=== PATIENT | female | born 1995 | race Caucasian/White ===

== ENCOUNTER 2019-07-11 17:12 | Emergency (ER) | payer OTHER, MEDICAID ==
[~2019-07-11] VITALS: Ht 167.6 cm; Wt 46.3 kg
--- NOTE | 2019-07-11 18:22 | ED Back Pain ---
General Chief Complaint: General Problems/Pain Stated Complaint: BACK/NECK PAIN Source of Information: Patient, Family (daughter and grandmother) Exam Limitations: No Limitations History of Present Illness Date Seen by Provider: Jul 11, 2019 Time Seen by Provider: 18:05 Initial Comments The patient presents to the ER by private conveyance with her family and chief complaint that Friday, 6 days ago she was moving about a 50 pound fryer and tweaked her back. She's had back pain before but never this bad. Her pain is between her shoulder blades radiating down to her upper lumbar spine and some in her neck. She's not having any numbness, paresthesias tingling weakness dropping things falls, saddle anesthesia, incontinence of urine and bowel or bladder. She has had no traumatic incident. She's been using Tylenol mild relief. She also went and saw a chiropractor 2 days ago and does not feel like that this helped much. Generally she is followed by Dr. ochoa. She has Nexplanon. Allergies and Home Medications Allergies Coded Allergies: No Known Drug Allergies (Unverified , 07/11/19) Home Medications Cyclobenzaprine HCl 10 Mg Tablet, 10 MG PO Q8H PRN for SPASMS Prescribed by: PATRICIA WARREN on 07/11/191824 Naproxen 500 Mg Tablet, 500 MG PO BID Prescribed by: PATRICIA WARREN on 07/11/191824 Prednisone 20 Mg Tab, 40 MG PO DAILY Prescribed by: PATRICIA WARREN on 07/11/191824 Patient Home Medication List Home Medication List Reviewed: Yes Review of Systems Constitutional: No chills, No diaphoresis EENTM: No ear discharge, No ear pain Respiratory: No cough, No short of breath Cardiovascular: No chest pain, No edema Gastrointestinal: No abdominal pain, No constipation Genitourinary: No decreased output, No discharge Past Ulkvnjq-Gkogct-Jawbqt Hx Patient Social History Alcohol Use: Denies Use Recreational Drug Use: No Smoking Status: Never a Smoker Physical Exam Vital Signs Vital Signs - First Documented 07/11/19 17:20 Temp 98.4 Pulse 74 Resp 18 B/P (MAP) 107/61 (76) Pulse Ox 100 O2 Delivery Room Air Capillary Refill : Height, Weight, BMI Height: '" Weight: lbs. oz. kg; BMI Method: General Appearance: Mild Distress, Thin HEENT: PERRL/EOMI, Pharynx Normal, Moist Mucous Membranes Neck: Supple, Limited Range of Motion (mild limitation of range of motion bilaterally secondary to pain and spasm), Tender Lateral, Tender Midline Cardiovascular: Regular Rate, Rhythm, No Edema, Normal Peripheral Pulses Respiratory: Lungs Clear, Normal Breath Sounds, No Accessory Muscle Use, No Respiratory Distress Peripheral Pulses: 2+ Radial Pulses (R), 2+ Radial Pulses (L) Back: Normal Inspection, No CVA Tenderness, Vertebral Tenderness (cervical and thoracic spine) Extremity: Normal Capillary Refill, Normal Inspection, Non Tender, No Pedal Edema Neurologic/Psychiatric: Alert, Oriented x3, No Motor/Sensory Deficits (all 4 extremities), Other (symmetric, 2 out of 4 bilateral deep tendon reflexes at the patella) Skin: Normal Color, Warm/Dry Progress/Results/Core Measures Results/Orders My Orders Orders - PATRICIA WARREN Ketorolac Injection (Toradol Injection) (07/11/19 18:30) Orphenadrine Injection (Norflex Injectio (07/11/19 18:30) Medications Given in ED Current Medications Medications Dose Ordered Sig/Susana Route Start Time Stop Time Status Last Admin Dose Admin Ketorolac Tromethamine 60 mg ONCE ONCE IM 07/11/19 18:30 07/11/19 18:31 DC 07/11/19 18:40 60 MG Orphenadrine Citrate 60 mg ONCE ONCE IM 07/11/19 18:30 07/11/19 18:31 DC 07/11/19 18:40 60 MG Vital Signs/I&O 07/11/19 17:20 Temp 98.4 Pulse 74 Resp 18 B/P (MAP) 107/61 (76) Pulse Ox 100 O2 Delivery Room Air Progress Progress Note : Time: 18:19 Progress Note Toradol, Norflex and put her on Naprosyn and rest tonight. Plan to utilize steroids outpatient if not seeing improvement in 1 week. Follow-up with Dr. ochoa in 2 weeks if not seeing improvement. Departure Impression Primary Impression: Neck pain Additional Impressions: Acute thoracic back pain Qualified Codes: M54.6 - Pain in thoracic spine Spasm of thoracic back muscle Disposition: 01 HOME, SELF-CARE Condition: Stable Departure-Patient Inst. Decision time for Depature: 18:20 Referrals: AHSAN OCHOA MD (PCP/Family) Primary Care Physician Patient Instructions: Upper Back Pain (DC), Generalized Neck Pain (DC) Add. Discharge Instructions: For the next 2 weeks if you're having pain and would like you to take the Naprosyn one tablet twice a day on a schedule. You do not need to use any other NSAIDs such as ibuprofen, Aleve etc. If you're having breakthrough pain you may use 1000 mg of Tylenol every 8 hours as needed. Use topical creams such as icy hot or Aspercreme liberally. Heating pads can be helpful for your back pain. If you're having spasms of the muscles of your neck or back causing you to have difficulty turning your upper trunk or neck then you should use the cyclobenzaprine 1 tablet every 8 hours for muscle relaxing. Cyclobenzaprine will cause drowsiness and should not be combined with alcohol. If you're not seeing improvement in 7-10 days then you can sweet pickle maker the prednisone and start taking 1 tablet twice daily for 5 days. If you're not seeing improvement after 2 weeks then you should consider follow- up with primary care. All discharge instructions reviewed with patient and/or family. Voiced understanding. Scripts Naproxen (Naprosyn) 500 Mg Tablet 500 MG PO BID for 14 Days, #30 TAB 0 Refills Prov: PATRICIA WARREN 07/11/19 Cyclobenzaprine HCl (Cyclobenzaprine HCl) 10 Mg Tablet 10 MG PO Q8H PRN for SPASMS, #15 TAB 0 Refills Prov: PATRICIA WARREN 07/11/19 Prednisone (Prednisone) 20 Mg Tab 40 MG PO DAILY for 5 Days, #10 TAB 0 Refills Prov: PATRICIA WARREN 07/11/19 Work/School Note: Work Release Form Date Seen in the Emergency Department: Jul 11, 2019 Return to Work: Jul 13, 2019 Restrictions: Need Release from Doctor Other Restrictions Listed Below: Do not lift, push or pull more than 40 pounds until 07/25/19. PATRICIA WARREN Jul 11, 2019 18:22
[2019-07-11] MEDS ORDERED: CYCL10TA9 PO (18:25)
[2019-07-11] MEDS ORDERED: NAPR-1071 PO (18:25)
[2019-07-11] MEDS ORDERED: PRD20T PO (18:25)
[2019-07-11] MEDS ORDERED: ORPHENADRINE 60 MG/2 ML (NORFLEX) AMP IM ONE (18:30)
[2019-07-11] MEDS ORDERED: KETOROLAC 60 MG/2 ML VIAL IM ONE (18:30)
[2019-07-11 18:45] VITALS: BP 107/61
== END 2019-07-11 18:45 | disposition home or self-care (01) ==
LOC: ER FS 17:15
DX: M62.830 Muscle spasm of back (principal); M54.2 Cervicalgia; W50.0XXA Accidental hit or strike by another person, initial encounter
CPT/HCPCS: 99284

== ENCOUNTER → 2019-07-27 | Outpatient (CLI) | payer OTHER, MEDICAID ==
[~2019-07-27] MED LIST: AMOX500C2 PO; CYCL10TA9 PO; IBUP-1780 PO; NAPR-1071 PO; PRD20T PO; TRAM-42 PO
--- NOTE | 2019-07-27 10:05 | Diagnostic Imaging Report ---
Clinical indication: 2 weeks ago patient pushed something that was heavier than her. Patient is having mid back pain on right side. Exams: 1: Chest x-ray PA and lateral views. 2: X-ray of the Right ribs, 3 views. Comparisons: None. Findings: Lungs/pleura: Lungs are clear. There is no pneumothorax. There is no pleural effusion. Mediastinum: Unremarkable. Pulmonary vasculature: Unremarkable. Heart: Unremarkable. Bones/extrathoracic soft tissue: Unremarkable. Ribs: There is no fracture or bony abnormality. Impression: Unremarkable chest x-ray exam. There is no bone or rib fracture seen on this exam Dictated by: Dictated on workstation # [id number]
== END ==
LOC: RAD FS 09:15
PROVIDERS: ATTEND Family Medicine
DX: M54.6 Pain in thoracic spine (principal); X50.0XXA Overexertion from strenuous movement or load, initial encounter
CPT/HCPCS: 71046; 71100

== ENCOUNTER 2019-07-30 12:09 | Emergency (ER) | payer OTHER, MEDICAID ==
[~2019-07-30] VITALS: Ht 162.6 cm; Wt 54.4 kg
[~2019-07-30 12:09] MED LIST changes: -AMOX500C2 PO; -IBUP-1780 PO; -TRAM-42 PO
--- NOTE | 2019-07-30 12:30 | ED GI ---
General Chief Complaint: Abdominal/GI Problems Stated Complaint: RT SIDED ABD PAIN Source of Information: Patient Exam Limitations: No Limitations History of Present Illness Date Seen by Provider: Jul 30, 2019 Time Seen by Provider: 12:27 Initial Comments Presents with abdominal pain for the past several days. Seen by primary care provider and was placed on Carafate and she states she's had no improvement. A few weeks ago she hurt her back, was seen in this emergency room and had x-rays placed on muscle relaxers. Was later seen again and placed on Naprosyn for her back pain. Overall it is improved, but still having some pain with movement. Abdominal pain has been intermittent, but somewhat progressive. She's had decreased appetite, but still eating. Positive nausea without vomiting and one loose stool yesterday. Denies fever or chills Modifying Factors: Worsens With Breathing, Worsens With Movement Associated Symptoms: Back Pain; No Chest Pain, No Fever/Chills, No Fatigue, No Headache, No Heartburn; Nausea/Vomiting; No Rash, No Shortness of Air, No Swelling/Mass in Abdomen, No Syncope, No Weakness Allergies and Home Medications Allergies Coded Allergies: No Known Drug Allergies (Unverified , 07/11/19) Home Medications Amoxicillin 500 Mg Capsule, 500 MG PO TID Prescribed by: RAJESH MERCHANT on 07/30/191423 Cyclobenzaprine HCl 10 Mg Tablet, 10 MG PO Q8H PRN for SPASMS Prescribed by: PATRICIA WARREN on 07/11/19 182 Ibuprofen 800 Mg Tablet, 600 MG PO Q8H PRN for PAIN-MILD Prescribed by: RAJESH MERCHANT on 07/30/191423 Naproxen 500 Mg Tablet, 500 MG PO BID Prescribed by: PATRICIA WARREN on 07/11/19 182 Prednisone 20 Mg Tab, 40 MG PO DAILY Prescribed by: PATRICIA WARREN on 07/11/19 182 Tramadol HCl 50 Mg Tablet, 50 MG PO Q6H Prescribed by: RAJESH MERCHANT on 07/30/19 142 Patient Home Medication List Home Medication List Reviewed: Yes Review of Systems Review of Systems Constitutional: see HPI; No chills, No diaphoresis, No fever; malaise; No weak ness Respiratory: Denies Cough, Denies Shortness of Air, Denies SOA With Exertion, Denies SOA at Rest Cardiovascular: Denies See HPI, Denies Chest Pain, Denies Edema, Denies Irregular Heart Rate, Denies Lightheadedness, Denies Palpitations, Denies Syncope Gastrointestinal: Denies Abdomen Distended; Abdominal Pain; Denies Constipated; Nausea, Poor Appetite; Denies Poor Fluid Intake, Denies Vomiting Genitourinary: Denies Burning, Denies Discharge, Denies Frequency, Denies Flank Pain, Denies Hematuria Musculoskeletal: back pain; No joint pain Skin: No change in color, No rash Past Qgwbudp-Edgdlz-Oalrsk Hx Past Med/Social Hx: Reviewed Nursing Past Med/Soc Hx Patient Social History 2nd Hand Smoke Exposure: No Recent Hopitalizations: No Immunizations Up To Date Tetanus Booster (TDap): Less than 5yrs Seasonal Allergies Seasonal Allergies: No Past Medical History Surgeries: Yes (Lt arm) Orthopedic Respiratory: No Cardiac: No Neurological: No Genitourinary: No Gastrointestinal: No Musculoskeletal: No Endocrine: No HEENT: No Cancer: No Psychosocial: No Blood Disorders: No Physical Exam Vital Signs Vital Signs - First Documented 07/30/19 12:25 Pulse 86 Resp 18 B/P (MAP) 128/105 (113) O2 Delivery Room Air Capillary Refill : Height/Weight/BMI Height: 5'6.00" Weight: 102lbs. oz. 46.894727nj; BMI Method:Stated General Appearance: WD/WN, no apparent distress Respiratory: chest non-tender, lungs clear, normal breath sounds Cardiovascular: regular rate, rhythm, no edema, no gallop Gastrointestinal: normal bowel sounds, soft, no organomegaly, no pulsatile mass; No distended; guarding (RLQ); No rebound; tenderness (RLQ and R flank); No mass, No hepatomegaly, No spleenomegaly Progress/Results/Core Measures Results/Orders Lab Results Laboratory Tests Test 07/30/19 12:14 07/30/19 12:20 Range/Units Urine Color YELLOW Urine Clarity SL CLOUDY Urine pH 6.5 5-9 Urine Specific [place] 1.020 1.016-1.022 Urine Protein TRACE H NEGATIVE Urine Glucose (UA) NEGATIVE NEGATIVE Urine Ketones NEGATIVE NEGATIVE Urine Nitrite NEGATIVE NEGATIVE Urine Bilirubin NEGATIVE NEGATIVE Urine Urobilinogen 0.2 NORMAL MG/DL Urine Leukocyte Esterase 1+ H NEGATIVE Urine RBC (Auto) 3+ H NEGATIVE Urine RBC 25-50 H /HPF Urine WBC 10-25 H /HPF Urine Squamous Epithelial Cells 10-25 H /HPF Urine Crystals NONE /LPF Urine Bacteria MODERATE H /HPF Urine Casts NONE /LPF Urine Mucus MODERATE H /LPF Urine Culture Indicated YES Urine Test NEGATIVE NEGATIVE White Blood Count 14.3 H 4.3-11.0 10^3/uL Red Blood Count 5.21 4.35-5.85 10^6/uL Hemoglobin 16.5 H 11.5-16.0 G/DL Hematocrit 47 35-52 % Mean Corpuscular Volume 91 80-99 FL Mean Corpuscular Hemoglobin 32 25-34 PG Mean Corpuscular Hemoglobin Concent 35 32-36 G/DL Red Cell Distribution Width 12.1 10.0-14.5 % Platelet Count 269 130-400 10^3/uL Mean Platelet Volume 10.1 7.4-10.4 FL Neutrophils (%) (Auto) 75 42-75 % Lymphocytes (%) (Auto) 18 12-44 % Monocytes (%) (Auto) 6 0-12 % Eosinophils (%) (Auto) 1 0-10 % Basophils (%) (Auto) 0 0-10 % Neutrophils # (Auto) 10.7 H 1.8-7.8 X 10^3 Lymphocytes # (Auto) 2.6 1.0-4.0 X 10^3 Monocytes # (Auto) 0.9 0.0-1.0 X 10^3 Eosinophils # (Auto) 0.1 0.0-0.3 10^3/uL Basophils # (Auto) 0.1 0.0-0.1 10^3/uL Neutrophils % (Manual) 73 % Lymphocytes % (Manual) 18 % Monocytes % (Manual) 4 % Eosinophils % (Manual) 1 % Band Neutrophils 4 % Blood Morphology Comment NORMAL Sodium Level 141 135-145 MMOL/L Potassium Level 3.9 3.6-5.0 MMOL/L Chloride Level 100 98-107 MMOL/L Carbon Dioxide Level 26 21-32 MMOL/L Anion Gap 15 H 5-14 MMOL/L Blood Urea Nitrogen 10 7-18 MG/DL Creatinine 0.71 0.60-1.30 MG/DL Estimat Glomerular Filtration Rate > 60 BUN/Creatinine Ratio 14 Glucose Level 102 70-105 MG/DL Calcium Level 9.4 8.5-10.1 MG/DL Corrected Calcium 8.5-10.1 MG/DL Total Bilirubin 0.6 0.1-1.0 MG/DL Aspartate Amino Transf (AST/SGOT) 16 5-34 U/L Alanine Aminotransferase (ALT/SGPT) 10 0-55 U/L Alkaline Phosphatase 57 40-136 U/L Total Protein 8.4 H 6.4-8.2 GM/DL Albumin 4.9 H 3.2-4.5 GM/DL My Orders Orders - RAJESH MERCHANT DO Ct Abdomen/Pelvis W (07/30/19 12:25) Ed Iv/Invasive Line Start (07/30/19 12:25) Cbc With Automated Diff (07/30/19 12:25) Comprehensive Metabolic Panel (07/30/19 12:25) Hcg,Qualitative Urine (07/30/19 12:25) Urinalysis (07/30/19 12:26) Urine Culture (07/30/19 12:14) Manual Differential (07/30/19 12:20) Iohexol Injection (Omnipaque 350 Mg/Ml 1 (07/30/19 13:15) Received Contrast (Hold Metformin- Contr (07/30/19 13:15) Sodium Chloride Flush (Catheter Flush Sy (07/30/19 13:15) Ns (Ivpb) (Sodium Chloride 0.9% Ivpb Bag (07/30/19 13:15) Ondansetron Injection (Zofran Injectio (07/30/19 13:15) Medications Given in ED Current Medications Medications Dose Ordered Sig/Susana Route Start Time Stop Time Status Last Admin Dose Admin Iohexol 100 ml ONCE ONCE IV 07/30/19 13:15 07/30/19 13:16 DC 07/30/19 13:21 100 ML Ondansetron HCl 4 mg ONCE ONCE IVP 07/30/19 13:15 07/30/19 13:16 DC 07/30/19 13:25 4 MG Sodium Chloride 10 ml NEEDED PRN IV 07/30/19 13:15 07/30/19 13:21 10 ML Sodium Chloride 100 ml ONCE ONCE IV 07/30/19 13:15 07/30/19 13:16 DC 07/30/19 13:21 100 ML Vital Signs/I&O 07/30/19 12:25 Pulse 86 Resp 18 B/P (MAP) 128/105 (113) O2 Delivery Room Air Diagnostic Imaging Diagonstic Imaging: CT Plain Films/CT/US/NM/MRI: abdomen, pelvis Reviewed: Reviewed by Me Departure Communication (Admissions) Family Conversation Spoke to patient and family about follow-up..... To consider [employer] consult with Dr. Frank if not improving in 5-7 days or follow up in the ER sooner if worse Impression Primary Impression: Abdominal pain Qualified Codes: R10.31 - Right lower quadrant pain Additional Impressions: Ovarian cyst Qualified Codes: N83.201 - Unspecified ovarian cyst, right side UTI (urinary tract infection) Qualified Codes: N30.01 - Acute cystitis with hematuria Disposition: HOME, SELF-CARE Condition: Stable Departure-Patient Inst. Referrals: AHSAN OCHOA MD (PCP/Family) Primary Care Physician Patient Instructions: Ovarian Cysts Scripts Tramadol HCl (Ultram) 50 Mg Tablet 50 MG PO Q6H for Pain, #10 TAB Prov: RAJESH MERCHANT DO 07/30/19 Amoxicillin (Amoxicillin) 500 Mg Capsule 500 MG PO TID for 5 Days, #15 CAP Prov: RAJESH MERCHANT DO 07/30/19 Ibuprofen (Ibuprofen) 800 Mg Tablet 600 MG PO Q8H PRN for PAIN-MILD, #30 TAB Prov: RAJESH MERCHANT DO 07/30/19 RAJESH MERCHANT DO Jul 30, 2019 12:30
[2019-07-30 12:55] LABS: CLARITY,URINE SL CLOUDY; COLOR,URINE YELLOW; PH,URINE 6.5 (5-9)
[2019-07-30 12:56] LABS: BACTERIA,URINE MODERATE /HPF; BILIRUBIN,URINE NEGATIVE (NEGATIVE); GLUCOSE, URINE (UA) NEGATIVE (NEGATIVE); KETONES,URINE NEGATIVE (NEGATIVE); LEUKOCYTE ESTERASE ,URINE 1+ (NEGATIVE); NITRITE,URINE NEGATIVE (NEGATIVE); PROTEIN,URINE TRACE (NEGATIVE); RBC,URINE 25-50 /HPF; UROBILINOGEN,URINE 0.2 MG/DL (NORMAL)
[2019-07-30 12:57] LABS: HEMOGLOBIN 16.5 G/DL (11.5-16.0); MEAN CORPUSCULAR HEMOGLOBIN 32 PG (25-34); WHITE BLOOD COUNT 14.3 10^3/uL (4.3-11.0)
[2019-07-30 12:58] LABS: BASOPHILS # (AUTO) 0.1 10^3/uL (0.0-0.1); BASOPHILS % (AUTO) 0 % (0-10); EOSINOPHILS # (AUTO) 0.1 10^3/uL (0.0-0.3); EOSINOPHILS % (AUTO) 1 % (0-10); HEMATOCRIT 47 % (35-52); LYMPHOCYTES # (AUTO) 2.6 X 10^3 (1.0-4.0); LYMPHOCYTES % (AUTO) 18 % (12-44); MEAN CORPUSCULAR HGB CONC 35 G/DL (32-36); MEAN CORPUSCULAR VOLUME 91 FL (80-99); MEAN PLATELET VOLUME 10.1 FL (7.4-10.4); MONOCYTES # (AUTO) 0.9 X 10^3 (0.0-1.0); MONOCYTES % (AUTO) 6 % (0-12); NEUTROPHILS # (AUTO) 10.7 X 10^3 (1.8-7.8); NEUTROPHILS % (AUTO) 75 % (42-75); PLATELET COUNT 269 10^3/uL (130-400); RED CELL DISTRIBUTION WIDTH 12.1 % (10.0-14.5)
[2019-07-30 12:59] LABS: BAND NEUTROPHILS 4 %; EOSINOPHILS % (MANUAL) 1 %; LYMPHOCYTES % (MANUAL) 18 %; MONOCYTES % (MANUAL) 4 %; NEUTROPHILS % (MANUAL) 73 %
[2019-07-30 13:00] LABS: RBC MORPH NORMAL
[2019-07-30 13:01] LABS: ALANINE AMINOTRANSFERASE 10 U/L (0-55); ALBUMIN 4.9 GM/DL (3.2-4.5); ALKALINE PHOSPHATASE 57 U/L (40-136); BILIRUBIN,TOTAL 0.6 MG/DL (0.1-1.0); BUN/CREATININE RATIO 14; CALCIUM 9.4 MG/DL (8.5-10.1); CARBON DIOXIDE 26 MMOL/L (21-32); CHLORIDE 100 MMOL/L (98-107); CREATININE SERUM 0.71 MG/DL (0.60-1.30); GFR ESTIMATED > 60; GLUCOSE 102 MG/DL (70-105); POTASSIUM 3.9 MMOL/L (3.6-5.0); SODIUM 141 MMOL/L (135-145); TOTAL PROTEIN 8.4 GM/DL (6.4-8.2)
[2019-07-30] MEDS ORDERED: IOHEXOL 350 MG/ML 100 ML (OMNIPAQUE 350) VIAL IV ONE (13:15)
[2019-07-30] MEDS ORDERED: NS 100 ML (IVPB) BAG IV ONE (13:15)
[2019-07-30] MEDS ORDERED: HOLD METFORMIN - RECEIVED CONTRAST 20 ML VIAL IV SCH (13:15)
[2019-07-30] MEDS ORDERED: ONDANSETRON 4 MG/2 ML (SDV) Z0FRAN IVP ONE (13:15)
[2019-07-30] MEDS ORDERED: CATHETER FLUSH 10 ML SYR IV PRN (13:15)
--- NOTE | 2019-07-30 14:06 | Diagnostic Imaging Report ---
PROCEDURE: CT abdomen and pelvis with contrast. TECHNIQUE: Multiple contiguous axial images were obtained through the abdomen and pelvis after administration of intravenous contrast. Auto Exposure Controls were utilized during the CT exam to meet ALARA standards for radiation dose reduction. INDICATION: Nausea, vomiting, and right-sided abdominal pain symptoms of six days' duration. COMPARISON: I have no previous for direct comparison. FINDINGS: The air-containing appendix is visualized. It is nondilated. There was no evidence for acute appendicitis. There is a right adnexal cyst, presumed ovarian, measuring long axis of 3 cm. The left ovary and adnexa are unremarkable. The uterus is unremarkable. There was no bowel obstruction. There is no evidence for diverticulitis. Unobstructed kidneys appeared nonfocal and within normal limits. The liver, gallbladder, and bile ducts are nondistended and unremarkable. The aortoiliac vessels are patent and nonaneurysmal. There is no ascites, abscess, hematoma, or fluid collection. No pneumatosis or free gas. IMPRESSION: Unremarkable appendix, unobstructed urinary tracts, and right ovarian cyst of 3 cm. No other significant finding. Dictated by: Dictated on workstation # [id number]
[2019-07-30] MEDS ORDERED: TRAM-42 PO (14:24)
[2019-07-30] MEDS ORDERED: IBUP-1780 PO (14:24)
[2019-07-30] MEDS ORDERED: AMOX500C2 PO (14:24)
[2019-07-30 14:47] VITALS: BP 112/73
== END 2019-07-30 14:47 | disposition home or self-care (01) ==
LOC: EDUNIT# 12:09 → ER FS 12:10
DX: N83.201 Unspecified ovarian cyst, right side (principal); N39.0 Urinary tract infection, site not specified; Z79.52 Long term (current) use of systemic steroids
CPT/HCPCS: 36415; 74177; 80053; 81000; 84703; 85007; 85027; 87088; 96374

== ENCOUNTER 2019-08-14 12:38 | Emergency (ER) | payer OTHER, MEDICAID ==
[~2019-08-14] VITALS: Ht 167 cm; Wt 50.3 kg
[~2019-08-14 12:38] MED LIST changes: +AMOX500C2 PO; +IBUP-1780 PO; +TRAM-42 PO
[2019-08-14] MEDS ORDERED: ONDANSETRON 4 MG (ZOFRAN) ORAL DISSOLVE TAB PO STA (13:27)
--- NOTE | 2019-08-14 13:34 | ED Abdominal Pain ---
General Chief Complaint: Abdominal/GI Problems Stated Complaint: NAUSEA,ABD PAIN Nursing Triage Note: Was previously diagnosed with an ovarian cyst in ED and is having similar pain on the R lower quadrant. States pain has been present intermittently since last ED visit but is getting worse over the past couple of days. Pain is 30/10 and is having nausea that started yesterday. Has had no vomiting. Took ibuprofen and pepto yesterday with no relief. Sepsis Screen: No Definite Risk History of Present Illness Date Seen by Provider: Aug 14, 2019 Time Seen by Provider: 13:29 Initial Comments 23 yo female has had 3-4 visits to this ER recently seen 9-6 with abd pain dx 3cm ovarian cyst on CT and UTI has implanted control device says menses started again 3 days ago yest started having nausea but has not vomited has pain across pelvis today no fever no diarrhea still eating normally no urnary sx's had used zofran and tramadol previously, both helpful Allergies and Home Medications Allergies Coded Allergies: No Known Drug Allergies (Unverified , 07/11/19) Home Medications Amoxicillin 500 Mg Capsule, 500 MG PO TID Prescribed by: RAJESH MERCHANT on 07/30/19 1424 Cyclobenzaprine HCl 10 Mg Tablet, 10 MG PO Q8H PRN for SPASMS Prescribed by: PATRICIA WARREN on 07/11/19 182 Ibuprofen 800 Mg Tablet, 600 MG PO Q8H PRN for PAIN-MILD Prescribed by: RAJESH MERCHANT on 07/30/19 1424 Naproxen 500 Mg Tablet, 500 MG PO BID Prescribed by: PATRICIA WARREN on 07/11/19 182 Ondansetron 4 Mg Tab.rapdis, 4 MG PO TID Prescribed by: RIZWAN WARREN on 08/14/19 140 Prednisone 20 Mg Tab, 40 MG PO DAILY Prescribed by: PATRICIA WARREN on 07/11/19 182 Sulfamethoxazole/Trimethoprim 1 Each Tablet, 1 EACH PO BID Prescribed by: RIZWAN WARREN on 08/14/19 1403 Tramadol HCl 50 Mg Tablet, 50 MG PO Q6H Prescribed by: RAJESH MERCHANT on 07/30/19 1424 Patient Home Medication List Home Medication List Reviewed: Yes Review of Systems Review of Systems Constitutional: No fever Respiratory: No Symptoms Reported Cardiovascular: No Symptoms Reported Gastrointestinal: Abdominal Pain; Denies Diarrhea; Nausea; Denies Poor Appetite (eating normally), Denies Vomiting Genitourinary: No Symptoms Reported Past Qqxaxye-Xrhlhb-Abfhgi Hx Patient Social History Alcohol Use: Occasionally Uses Recreational Drug Use: No Smoking Status: Never a Smoker 2nd Hand Smoke Exposure: No Recent Foreign Travel: No Contact w/Someone Who Travel: No Recent Infectious Disease Expo: No Recent Hopitalizations: No Physical Abuse: No Sexual Abuse: No Mistreated: No Fear: No Immunizations Up To Date Tetanus Booster (TDap): Less than 5yrs Seasonal Allergies Seasonal Allergies: No Past Medical History Surgeries: Yes (Lt arm) Orthopedic Respiratory: No Cardiac: No Neurological: No Genitourinary: No Gastrointestinal: No Musculoskeletal: No Endocrine: No HEENT: No Cancer: No Psychosocial: No Integumentary: No Blood Disorders: No Physical Exam Vital Signs Vital Signs - First Documented 08/14/19 12:51 Temp 36.6 Pulse 102 Resp 18 B/P (MAP) 104/78 (87) Pulse Ox 96 Capillary Refill : Less Than 3 Seconds Height/Weight/BMI Height: 5'4.00" Weight: 120lbs. oz. 54.263267ti; 18.00 BMI Method:Stated General Appearance: WD/WN, no apparent distress HEENT: PERRL/EOMI, pharynx normal Neck: non-tender Respiratory: chest non-tender, normal breath sounds Cardiovascular: regular rate, rhythm Gastrointestinal: normal bowel sounds, soft; No guarding, No rebound; tenderness (only mild suprapubic/across pelvis) Back: normal inspection, no CVA tenderness Progress/Results/Core Measures Results/Orders Lab Results Laboratory Tests Test 08/14/19 13:20 08/14/19 13:35 Range/Units Urine Color YELLOW Urine Clarity SLT CLOUDY Urine pH 7.5 5-9 Urine Specific [place] 1.020 1.016-1.022 Urine Protein NEGATIVE NEGATIVE Urine Glucose (UA) NEGATIVE NEGATIVE Urine Ketones NEGATIVE NEGATIVE Urine Nitrite NEGATIVE NEGATIVE Urine Bilirubin NEGATIVE NEGATIVE Urine Urobilinogen 0.2 NORMAL MG/DL Urine Leukocyte Esterase 3+ H NEGATIVE Urine RBC (Auto) 3+ H NEGATIVE Urine RBC RARE /HPF Urine WBC 10-25 H /HPF Urine Squamous Epithelial Cells 5-10 /HPF Urine Crystals NONE /LPF Urine Bacteria FEW H /HPF Urine Casts NONE /LPF Urine Mucus NONE /LPF Urine Culture Indicated YES Urine Test NEGATIVE NEGATIVE White Blood Count 7.1 4.3-11.0 10^3/uL Red Blood Count 4.61 4.35-5.85 10^6/uL Hemoglobin 14.3 11.5-16.0 G/DL Hematocrit 42 35-52 % Mean Corpuscular Volume 90 80-99 FL Mean Corpuscular Hemoglobin 31 25-34 PG Mean Corpuscular Hemoglobin Concent 34 32-36 G/DL Red Cell Distribution Width 11.9 10.0-14.5 % Platelet Count 206 130-400 10^3/uL Mean Platelet Volume 10.2 7.4-10.4 FL Neutrophils (%) (Auto) 75 42-75 % Lymphocytes (%) (Auto) 17 12-44 % Monocytes (%) (Auto) 7 0-12 % Eosinophils (%) (Auto) 2 0-10 % Basophils (%) (Auto) 0 0-10 % Neutrophils # (Auto) 5.3 1.8-7.8 X 10^3 Lymphocytes # (Auto) 1.2 1.0-4.0 X 10^3 Monocytes # (Auto) 0.5 0.0-1.0 X 10^3 Eosinophils # (Auto) 0.1 0.0-0.3 10^3/uL Basophils # (Auto) 0.0 0.0-0.1 10^3/uL My Orders Orders - RIZWAN WARREN MD Urinalysis (08/14/19 13:27) Hcg,Qualitative Urine (08/14/19 13:27) Cbc With Automated Diff (08/14/19 13:27) Ondansetron Oral Dissolve Tab (Zofran (08/14/19 13:27) Urine Culture (08/14/19 13:20) Ceftriaxone For Im Use (Rocephin For Im (08/14/19 14:00) Vital Signs/I&O 08/14/19 12:51 Temp 36.6 Pulse 102 Resp 18 B/P (MAP) 104/78 (87) Pulse Ox 96 Blood Pressure Mean: 87 Progress Progress Note : Progress Note WBC normal UCG neg UA ++ for UTI will Rocephin IM Rx Septra and Zofran Departure Impression Primary Impression: Urinary tract infection Qualified Codes: N30.00 - Acute cystitis without hematuria Disposition: HOME, SELF-CARE Condition: Stable Departure-Patient Inst. Decision time for Depature: 14:00 Referrals: AHSAN OCHOA MD (PCP/Family) Primary Care Physician Patient Instructions: Urinary Tract Infection, Adult (DC) Add. Discharge Instructions: please follow up in clinic early next week Scripts Ondansetron (Ondansetron Odt) 4 Mg Tab.rapdis 4 MG PO TID for Nausea for 5 Days, #15 TAB 1 Refill Prov: RIZWAN WARREN MD 08/14/19 Sulfamethoxazole/Trimethoprim (Bactrim Ds Tablet) 1 Each Tablet 1 EACH PO BID for 7 Days, #14 TAB 1 Refill Prov: RIZWAN WARREN MD 08/14/19 RIZWAN WARREN MD Aug 14, 2019 13:34
[2019-08-14 13:44] LABS: HEMATOCRIT 42 % (35-52); HEMOGLOBIN 14.3 G/DL (11.5-16.0); MEAN CORPUSCULAR HEMOGLOBIN 31 PG (25-34); MEAN CORPUSCULAR VOLUME 90 FL (80-99); WHITE BLOOD COUNT 7.1 10^3/uL (4.3-11.0)
[2019-08-14 13:45] LABS: BASOPHILS % (AUTO) 0 % (0-10); EOSINOPHILS # (AUTO) 0.1 10^3/uL (0.0-0.3); EOSINOPHILS % (AUTO) 2 % (0-10); LYMPHOCYTES # (AUTO) 1.2 X 10^3 (1.0-4.0); LYMPHOCYTES % (AUTO) 17 % (12-44); MEAN CORPUSCULAR HGB CONC 34 G/DL (32-36); MEAN PLATELET VOLUME 10.2 FL (7.4-10.4); MONOCYTES # (AUTO) 0.5 X 10^3 (0.0-1.0); MONOCYTES % (AUTO) 7 % (0-12); NEUTROPHILS # (AUTO) 5.3 X 10^3 (1.8-7.8); NEUTROPHILS % (AUTO) 75 % (42-75); PLATELET COUNT 206 10^3/uL (130-400); RED CELL DISTRIBUTION WIDTH 11.9 % (10.0-14.5)
[2019-08-14 13:49] LABS: CLARITY,URINE SLT CLOUDY; COLOR,URINE YELLOW; PH,URINE 7.5 (5-9)
[2019-08-14 13:50] LABS: BACTERIA,URINE FEW /HPF; BILIRUBIN,URINE NEGATIVE (NEGATIVE); GLUCOSE, URINE (UA) NEGATIVE (NEGATIVE); KETONES,URINE NEGATIVE (NEGATIVE); LEUKOCYTE ESTERASE ,URINE 3+ (NEGATIVE); NITRITE,URINE NEGATIVE (NEGATIVE); PROTEIN,URINE NEGATIVE (NEGATIVE); RBC,URINE RARE /HPF; UROBILINOGEN,URINE 0.2 MG/DL (NORMAL)
[2019-08-14] MEDS ORDERED: cefTRIAXone 1,000 MG/2.86 ml vial (IM ONLY) ONE (13:55)
[2019-08-14] MEDS ORDERED: cefTRIAXone 500 MG/1.43 ML vial (IM ONLY) IM ONE (14:00)
[2019-08-14] MEDS ORDERED: ONDA4TAB11 PO (14:03)
[2019-08-14] MEDS ORDERED: SULF1TAB35 PO (14:03)
[2019-08-14 14:12] VITALS: BP 106/74
== END 2019-08-14 14:20 | disposition home or self-care (01) ==
LOC: EDUNIT# 12:38 → ER FS 12:39
DX: N39.0 Urinary tract infection, site not specified (principal); Z79.52 Long term (current) use of systemic steroids
CPT/HCPCS: 36415; 81000; 84703; 85025; 87088

== ENCOUNTER 2019-08-18 15:39 | Emergency (ER) | payer OTHER, MEDICAID ==
[~2019-08-18] VITALS: Ht 167 cm; Wt 50.0 kg
[~2019-08-18 15:39] MED LIST changes: +ONDA4TAB11 PO; +SULF1TAB35 PO
[2019-08-18 15:58] LABS: BASOPHILS % (AUTO) 1 % (0-10); EOSINOPHILS # (AUTO) 0.2 10^3/uL (0.0-0.3); EOSINOPHILS % (AUTO) 4 % (0-10); HEMATOCRIT 41 % (35-52); HEMOGLOBIN 15.1 G/DL (11.5-16.0); LYMPHOCYTES # (AUTO) 1.3 X 10^3 (1.0-4.0); LYMPHOCYTES % (AUTO) 21 % (12-44); MEAN CORPUSCULAR HEMOGLOBIN 32 PG (25-34); MEAN CORPUSCULAR HGB CONC 37 G/DL (32-36); MEAN CORPUSCULAR VOLUME 86 FL (80-99); MEAN PLATELET VOLUME 9.5 FL (7.4-10.4); MONOCYTES # (AUTO) 0.9 X 10^3 (0.0-1.0); MONOCYTES % (AUTO) 14 % (0-12); NEUTROPHILS % (AUTO) 62 % (42-75); PLATELET COUNT 307 10^3/uL (130-400); RED CELL DISTRIBUTION WIDTH 12.2 % (10.0-14.5); WHITE BLOOD COUNT 6.5 10^3/uL (4.3-11.0)
[2019-08-18 16:06] LABS: BILIRUBIN,URINE NEGATIVE (NEGATIVE); CLARITY,URINE CLEAR; COLOR,URINE YELLOW; GLUCOSE, URINE (UA) NEGATIVE (NEGATIVE); KETONES,URINE NEGATIVE (NEGATIVE); LEUKOCYTE ESTERASE ,URINE 2+ (NEGATIVE); NITRITE,URINE NEGATIVE (NEGATIVE); PH,URINE 7 (5-9); PROTEIN,URINE NEGATIVE (NEGATIVE); UROBILINOGEN,URINE NORMAL (NORMAL)
[2019-08-18 16:16] LABS: ALANINE AMINOTRANSFERASE 15 U/L (0-55); ALBUMIN 4.6 GM/DL (3.2-4.5); ALKALINE PHOSPHATASE 63 U/L (40-136); AMYLASE 57 U/L (25-125); BILIRUBIN,TOTAL 0.3 MG/DL (0.1-1.0); BUN/CREATININE RATIO 15; CALCIUM 9.4 MG/DL (8.5-10.1); CARBON DIOXIDE 24 MMOL/L (21-32); CHLORIDE 105 MMOL/L (98-107); CREATININE SERUM 0.87 MG/DL (0.60-1.30); GFR ESTIMATED > 60; GLUCOSE 112 MG/DL (70-105); LIPASE 22 U/L (8-78); POTASSIUM 3.7 MMOL/L (3.6-5.0); SODIUM 139 MMOL/L (135-145); TOTAL PROTEIN 8.2 GM/DL (6.4-8.2)
[2019-08-18 16:17] LABS: BACTERIA,URINE TRACE /HPF; WBC,URINE RARE /HPF
[2019-08-18] MEDS ORDERED: PROMETHAZINE INJ 25 MG/ML (PHENERGAN) AMP IVP ONE (16:45)
[2019-08-18] MEDS ORDERED: KETOROLAC 30 MG/ML VIAL IVP ONE (16:45)
--- NOTE | 2019-08-18 16:50 | ED GU-Female ---
General Chief Complaint: Abdominal/GI Problems Stated Complaint: NAUSEA, ABD AND BACK PAIN Nursing Triage Note: Pt ambulates to rm 3 with C/O nausea, RLQ pain that radiates to back. Pt states she has a cyst on her right ovary, has a current UTI, has had back pain x 1 mo. Pt states she has not vomited. Pt denies fever/ chills/ diarrhea but mildly febrile on arrival. Nursing Sepsis Screen: No Definite Risk History of Present Illness Date Seen by Provider: Aug 18, 2019 Time Seen by Provider: 16:15 Timing/Duration: intermittent Associated Symptoms: abdominal pain; No dysuria, No fever/chills, No loss of bladder control, No lower back pain; nausea/vomiting; No polyuria, No urinary frequency Allergies and Home Medications Allergies Coded Allergies: No Known Drug Allergies (Unverified , 07/11/19) Home Medications Amoxicillin 500 Mg Capsule, 500 MG PO TID Prescribed by: RAJESH MERCHANT on 07/30/19 1424 Cyclobenzaprine HCl 10 Mg Tablet, 10 MG PO Q8H PRN for SPASMS Prescribed by: PATRICIA WARREN on 07/11/19 1825 Ibuprofen 800 Mg Tablet, 600 MG PO Q8H PRN for PAIN-MILD Prescribed by: RAJESH MERCHANT on 07/30/19 1424 Naproxen 500 Mg Tablet, 500 MG PO BID Prescribed by: PATRICIA WARREN on 07/11/19 182 Ondansetron 4 Mg Tab.rapdis, 4 MG PO TID Prescribed by: RIZWAN WARREN on 08/14/19 1403 Prednisone 20 Mg Tab, 40 MG PO DAILY Prescribed by: PATRICIA WARREN on 07/11/19 1825 Sulfamethoxazole/Trimethoprim 1 Each Tablet, 1 EACH PO BID Prescribed by: RIZWAN WARREN on 08/14/19 1403 Tramadol HCl 50 Mg Tablet, 50 MG PO Q6H Prescribed by: RAJESH MERCHANT on 07/30/19 1424 Tramadol HCl 50 Mg Tablet, 50 MG PO Q6H PRN for PAIN Prescribed by: BENJAMIN LAGUNA on 08/18/19 173 Patient Home Medication List Home Medication List Reviewed: Yes Review of Systems Review of Systems Constitutional: no symptoms reported, see HPI Gastrointestinal: see HPI, abdominal pain, nausea : No All Other Systemes Reviewed Negative Unless Noted: Yes Past Mvewqdh-Zevyzv-Fkwedk Hx Patient Social History Alcohol Use: Denies Use Recreational Drug Use: No 2nd Hand Smoke Exposure: No Recent Foreign Travel: No Contact w/Someone Who Travel: No Recent Infectious Disease Expo: No Recent Hopitalizations: No Immunizations Up To Date Tetanus Booster (TDap): Less than 5yrs Seasonal Allergies Seasonal Allergies: No Past Medical History Surgeries: Yes (Lt arm) Orthopedic Respiratory: No Cardiac: No Neurological: No Genitourinary: No Gastrointestinal: No Musculoskeletal: No Endocrine: No HEENT: No Cancer: No Psychosocial: No Integumentary: No Blood Disorders: No Physical Exam Vital Signs Vital Signs - First Documented 08/18/19 15:49 Temp 37.3 Pulse 87 Resp 19 B/P (MAP) 137/94 (108) Pulse Ox 100 O2 Delivery Room Air Capillary Refill : Less Than 3 Seconds Height, Weight, BMI Height: 5'4.00" Weight: 120lbs. oz. 54.321437mw; 17.00 BMI Method:Stated Progress/Results/Core Measures Suspected Sepsis Recent Fever Within 48 Hours: No Infection Criteria Present: None New/Unexplained Altered Menta: No Sepsis Screen: No Definite Risk SIRS Temperature: Pulse: 87 Respiratory Rate: 19 Laboratory Tests 08/18/19 15:54: White Blood Count 6.5 Blood Pressure 137 /94 Mean: 108 Laboratory Tests 08/18/19 15:54: Creatinine 0.87, Platelet Count 307, Total Bilirubin 0.3 Results/Orders Lab Results Laboratory Tests Test 08/18/19 15:54 08/18/19 16:00 Range/Units White Blood Count 6.5 4.3-11.0 10^3/uL Red Blood Count 4.80 4.35-5.85 10^6/uL Hemoglobin 15.1 11.5-16.0 G/DL Hematocrit 41 35-52 % Mean Corpuscular Volume 86 80-99 FL Mean Corpuscular Hemoglobin 32 25-34 PG Mean Corpuscular Hemoglobin Concent 37 H 32-36 G/DL Red Cell Distribution Width 12.2 10.0-14.5 % Platelet Count 307 130-400 10^3/uL Mean Platelet Volume 9.5 7.4-10.4 FL Neutrophils (%) (Auto) 62 42-75 % Lymphocytes (%) (Auto) 21 12-44 % Monocytes (%) (Auto) 14 H 0-12 % Eosinophils (%) (Auto) 4 0-10 % Basophils (%) (Auto) 1 0-10 % Neutrophils # (Auto) 4.0 1.8-7.8 X 10^3 Lymphocytes # (Auto) 1.3 1.0-4.0 X 10^3 Monocytes # (Auto) 0.9 0.0-1.0 X 10^3 Eosinophils # (Auto) 0.2 0.0-0.3 10^3/uL Basophils # (Auto) 0.0 0.0-0.1 10^3/uL Sodium Level 139 135-145 MMOL/L Potassium Level 3.7 3.6-5.0 MMOL/L Chloride Level 105 98-107 MMOL/L Carbon Dioxide Level 24 21-32 MMOL/L Anion Gap 10 5-14 MMOL/L Blood Urea Nitrogen 13 7-18 MG/DL Creatinine 0.87 0.60-1.30 MG/DL Estimat Glomerular Filtration Rate > 60 BUN/Creatinine Ratio 15 Glucose Level 112 H 70-105 MG/DL Calcium Level 9.4 8.5-10.1 MG/DL Corrected Calcium 8.5-10.1 MG/DL Total Bilirubin 0.3 0.1-1.0 MG/DL Aspartate Amino Transf (AST/SGOT) 16 5-34 U/L Alanine Aminotransferase (ALT/SGPT) 15 0-55 U/L Alkaline Phosphatase 63 40-136 U/L Total Protein 8.2 6.4-8.2 GM/DL Albumin 4.6 H 3.2-4.5 GM/DL Amylase Level 57 25-125 U/L Lipase 22 8-78 U/L Urine Color YELLOW Urine Clarity CLEAR Urine pH 7 5-9 Urine Specific Porter 1.010 L 1.016-1.022 Urine Protein NEGATIVE NEGATIVE Urine Glucose (UA) NEGATIVE NEGATIVE Urine Ketones NEGATIVE NEGATIVE Urine Nitrite NEGATIVE NEGATIVE Urine Bilirubin NEGATIVE NEGATIVE Urine Urobilinogen NORMAL NORMAL MG/DL Urine Leukocyte Esterase 2+ H NEGATIVE Urine RBC (Auto) NEGATIVE NEGATIVE Urine RBC NONE /HPF Urine WBC RARE /HPF Urine Squamous Epithelial Cells 5-10 /HPF Urine Renal Epithelial Cells 2-5 /HPF Urine Crystals NONE /LPF Urine Bacteria TRACE /HPF Urine Casts NONE /LPF Urine Mucus NEGATIVE /LPF Urine Culture Indicated NO My Orders Orders - JASE,BENJAMIN APPRENTICE/LINEMAN Urine Bedside (08/18/19 15:41) Amylase (08/18/19 15:41) Cbc With Automated Diff (08/18/19 15:41) Comprehensive Metabolic Panel (08/18/19 15:41) Lipase (08/18/19 15:41) Ua Culture If Indicated (08/18/19 15:41) Ketorolac Injection (Toradol Injection) (08/18/19 16:45) Promethazine Injection (Phenergan Injec (08/18/19 16:45) Medications Given in ED Current Medications Medications Dose Ordered Sig/Susana Route Start Time Stop Time Status Last Admin Dose Admin Ketorolac Tromethamine 30 mg ONCE ONCE IVP 08/18/19 16:45 08/18/19 16:47 DC 08/18/19 16:54 30 MG Promethazine HCl 12.5 mg ONCE ONCE IVP 08/18/19 16:45 08/18/19 16:47 DC 08/18/19 16:54 12.5 MG Vital Signs/I&O 08/18/19 15:49 Temp 37.3 Pulse 87 Resp 19 B/P (MAP) 137/94 (108) Pulse Ox 100 O2 Delivery Room Air Capillary Refill : Less Than 3 Seconds Blood Pressure Mean: 108 Departure Impression Primary Impression: Nausea alone Additional Impressions: Abdominal pain Qualified Codes: R10.84 - Generalized abdominal pain Back pain Qualified Codes: M54.5 - Low back pain Disposition: 01 HOME, SELF-CARE Condition: Improved Departure-Patient Inst. Decision time for Depature: 17:30 Referrals: SELF,AHSAN BORJAS (PCP/Family) Primary Care Physician Patient Instructions: Low Back Pain (DC), Nausea and Vomiting, Adult (DC) Add. Discharge Instructions: You may take tramadol 1 tablet every 8 hours for pain. Instead of the Zofran, try Phenergan 25 mg every 8 hours for nausea. Follow-up with your primary care provider if symptoms are not improving or worsen. Return to the emergency department for new, urgent health care problems. All discharge instructions reviewed with patient and/or family. Voiced understanding. Scripts Promethazine HCl (Promethazine Tablet) 25 Mg Tablet 25 MG PO Q6H PRN for NAUSEA/VOMITING, #12 TAB 0 Refills Prov: BENJAMIN LAGUNA 08/18/19 Tramadol HCl (Tramadol HCl) 50 Mg Tablet 50 MG PO Q6H PRN for PAIN, #20 TAB 0 Refills Prov: BENJAMIN LAGUNA 08/18/19 BENJAMIN LAGUNA Aug 18, 2019 16:50
[2019-08-18] MEDS ORDERED: TRAM50TA2 PO (17:35)
[2019-08-18] MEDS ORDERED: PROM25TA14 PO (17:44)
[2019-08-18 17:52] VITALS: BP 107/70
== END 2019-08-18 17:52 | disposition home or self-care (01) ==
LOC: EDUNIT# 15:39 → ER 15:41
DX: R11.0 Nausea (principal); R10.31 Right lower quadrant pain; M54.9 Dorsalgia, unspecified; Z79.52 Long term (current) use of systemic steroids
CPT/HCPCS: 36415; 80053; 81000; 82150; 83690; 84703; 85025

== ENCOUNTER 2019-09-09 23:02 | Emergency (ER) | payer OTHER, MEDICAID ==
[~2019-09-09] VITALS: Ht 167 cm; Wt 49.9 kg
[~2019-09-09 23:02] MED LIST changes: +PROM25TA14 PO; +TRAM50TA2 PO
--- NOTE | 2019-09-10 00:49 | ED Back Pain ---
General Chief Complaint: Back Problems Stated Complaint: BACK PAIN, BACK INJ Nursing Triage Note: PT AMBULATE TO ROOM FS02 WITH C/O UPPER RIGHT BACK PAIN STARTING TODAY. PT STATES SHE CURRENTLY IS BEING TREATED FOR A BACK INJURY AND THAT SHE MAY HAVE AGGRAVATED IT TODAY. 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 Nursing Sepsis Screen: No Definite Risk Source of Information: Patient History of Present Illness Date Seen by Provider: Sep 10, 2019 Time Seen by Provider: 00:49 Initial Comments Patient was working at [employer] when she had sudden pain in her upper back and right shoulder. She states that she is still being treated with physical therapy and nweg-nyv-vyncjwi medication for a upper back injury a few weeks ago. She had recently been tapered off of the Flexeril for muscle relaxer and her pain medication. She reports that she was reaching up above her shoulders to get a box and movement. She had sudden onset of pain and spasm in her upper back. She denies any numbness or tingling in her arms or legs. Allergies and Home Medications Allergies Coded Allergies: No Known Drug Allergies (Unverified , 07/11/19) Home Medications Amoxicillin 500 Mg Capsule, 500 MG PO TID Prescribed by: RAJESH MERCHANT on 07/30/19 1424 Cyclobenzaprine HCl 10 Mg Tablet, 10 MG PO Q8H PRN for SPASMS Prescribed by: PARAMJIT SÁNCHEZ on 09/10/19 011 Ibuprofen 800 Mg Tablet, 600 MG PO Q8H PRN for PAIN-MILD Prescribed by: RAJESH MERCHANT on 07/30/19 1424 Naproxen 500 Mg Tablet, 500 MG PO BID Prescribed by: PARAMJIT SÁNCHEZ on 09/10/19 0112 Ondansetron 4 Mg Tab.rapdis, 4 MG PO TID Prescribed by: RIZWAN WARREN on 08/14/19 140 Prednisone 20 Mg Tab, 40 MG PO DAILY Prescribed by: PATRICIA WARREN on 07/11/19 1825 Promethazine HCl 25 Mg Tablet, 25 MG PO Q6H PRN for NAUSEA/VOMITING Prescribed by: BENJAMIN LAGUNA on 08/18/19 1744 Sulfamethoxazole/Trimethoprim 1 Each Tablet, 1 EACH PO BID Prescribed by: RIZWAN WARREN on 08/14/19 1403 Tramadol HCl 50 Mg Tablet, 50 MG PO Q6H Prescribed by: RAJESH MERCHANT on 07/30/19 1424 Tramadol HCl 50 Mg Tablet, 50 MG PO Q6H PRN for PAIN Prescribed by: BENJAMIN LAGUNA on 08/18/19 1735 Patient Home Medication List Home Medication List Reviewed: Yes Review of Systems Constitutional: No chills, No fever EENTM: no symptoms reported Respiratory: no symptoms reported Cardiovascular: no symptoms reported Gastrointestinal: no symptoms reported Genitourinary: no symptoms reported Musculoskeletal: see HPI Skin: no symptoms reported Past Yhsgqcf-Jtglyi-Ovipcg Hx Past Med/Social Hx: Reviewed Nursing Past Med/Soc Hx Patient Social History Alcohol Use: Occasionally Uses Alcohol Beverage of Choice: Wine Recreational Drug Use: No Smoking Status: Never a Smoker 2nd Hand Smoke Exposure: No Recent Foreign Travel: Yes (AUG 04- PT WAS IN [place]) Contact w/Someone Who Travel: No Recent Infectious Disease Expo: No Recent Hopitalizations: No Physical Abuse: No Sexual Abuse: No Mistreated: No Fear: No Immunizations Up To Date Tetanus Booster (TDap): Less than 5yrs Seasonal Allergies Seasonal Allergies: No Past Medical History Surgeries: Yes (Lt arm) Orthopedic Respiratory: No Cardiac: No Neurological: No Genitourinary: No Gastrointestinal: No Musculoskeletal: No Endocrine: No HEENT: No Cancer: No Psychosocial: No Integumentary: No Blood Disorders: No Physical Exam Vital Signs Vital Signs - First Documented 09/09/19 09/10/19 23:23 01:25 Temp 36.7 Pulse 84 Resp 18 B/P (MAP) 117/76 (90) Pulse Ox 99 O2 Delivery Room Air Capillary Refill : Less Than 3 Seconds Height, Weight, BMI Height: 5'4.00" Weight: 120lbs. oz. 54.853542su; 17.00 BMI Method:Stated General Appearance: No Apparent Distress, WD/WN HEENT: Normal ENT Inspection, Pharynx Normal Neck: Full Range of Motion, Normal Inspection, Non Tender, Supple Cardiovascular: Regular Rate, Rhythm, Normal Peripheral Pulses Respiratory: Chest Non Tender, Lungs Clear, Normal Breath Sounds Back: Muscle Spasm (upper thoracic spine) Extremity: Normal Capillary Refill, Normal Inspection, Normal Range of Motion, Non Tender, No Pedal Edema Neurologic/Psychiatric: Alert, Oriented x3, No Motor/Sensory Deficits, Normal Mood/Affect, vice president planning II-XII Norm as Tested Skin: Normal Color, Warm/Dry Progress/Results/Core Measures Results/Orders My Orders Orders - PARAMJIT SÁNCHEZ MD Ketorolac Injection (Toradol Injection) (09/10/19 01:08) Orphenadrine Injection (Norflex Injectio (09/10/19 01:08) Vital Signs/I&O 09/09/19 09/10/19 23:23 01:25 Temp 36.7 Pulse 84 69 Resp 18 16 B/P (MAP) 117/76 (90) 129/65 Pulse Ox 99 O2 Delivery Room Air Room Air Blood Pressure Mean: 90 Progress Progress Note : Progress Note Reassured patient that on exam she did not have any acute neurologic findings. With no direct trauma to her spine will defer imaging. Continue with physical therapy and medications as recommended by occupational therapy. Will have her limit lifting and working above shoulder height until she can get cleared by occupational health clinic. Continue with her regular medicines and physical therapy. Departure Impression Primary Impression: Back strain of thoracic region Qualified Codes: S29.019A - Strain of muscle and tendon of unspecified wall of thorax, initial encounter Disposition: HOME, SELF-CARE Condition: Stable Departure-Patient Inst. Decision time for Depature: 01:09 Referrals: AHSAN SOTELO MD (PCP/Family) Primary Care Physician Patient Instructions: Muscle Strain (DC) Add. Discharge Instructions: Follow up with Dr. Sotelo or Occupational Health about your recurrent back injury. Take the medicine to help with muscle spasms and inflammation. Continue with your physical therapy as well. All discharge instructions reviewed with patient and/or family. Voiced understanding. Scripts Naproxen (Naprosyn) 500 Mg Tablet 500 MG PO BID for 14 Days, #30 TAB 0 Refills Prov: PARAMJIT SÁNCHEZ MD 09/10/19 Cyclobenzaprine HCl (Cyclobenzaprine HCl) 10 Mg Tablet 10 MG PO Q8H PRN for SPASMS for 7 Days, #21 TAB 0 Refills Prov: PARAMJIT SÁNCHEZ MD 09/10/19 Work/School Note: Work Release Form Date Seen in the Emergency Department: Sep 09, 2019 Return to Work: Sep 12, 2019 Restrictions: Follow Up With [facility] Other Restrictions Listed Below: No lifting more than 20 Pounds. No work above shoulder height. PARAMJIT SÁNCHEZ MD Sep 10, 2019 00:49
[2019-09-10] MEDS ORDERED: ORPHENADRINE 60 MG/2 ML (NORFLEX) AMP IM STA (01:08)
[2019-09-10] MEDS ORDERED: KETOROLAC 60 MG/2 ML VIAL IM STA (01:08)
[2019-09-10] MEDS ORDERED: NAPR-1071 PO (01:12)
[2019-09-10] MEDS ORDERED: CYCL10TA9 PO (01:12)
[2019-09-10 01:25] VITALS: BP 129/65
== END 2019-09-10 01:25 | disposition home or self-care (01) ==
LOC: EDUNIT# 23:02 → ER FS 23:04
DX: S29.019A Strain of muscle and tendon of unspecified wall of thorax, initial encounter (principal); Z79.52 Long term (current) use of systemic steroids; Z87.828 Personal history of other (healed) physical injury and trauma; X58.XXXA Exposure to other specified factors, initial encounter
CPT/HCPCS: 99284

== ENCOUNTER → 2020-01-05 | Outpatient (CLI) | payer MEDICAID, OTHER ==
[~2020-01-05] MED LIST changes: -TRAM50TA2 PO; +TRM50T PO
--- NOTE | 2020-01-05 15:06 | Diagnostic Imaging Report ---
INDICATION: Back pain after lifting heavy object. COMPARISON: None available. TECHNIQUE: Multiplanar, multisequence MR imaging of the thoracic spine was performed without contrast. FINDINGS: Normal kyphosis of the thoracic spine. No fracture or marrow-replacing process. The thoracic cord is normal in size and signal. There is no mass effect on the thoracic cord. No epidural mass. At T7-T8, there is a small central disc protrusion that effaces the ventral thecal sac but does not result in mass effect on the cord. There are also small disc protrusions with posterior annular tears at T11-T12 and T12-L1. Paravertebral musculature is normal. IMPRESSION: 1. No fracture. 2. Small central disc protrusion of T7-T8 does not cause mass effect on the thoracic cord. 3. Small posterior annular tears at T11-T12 and T12-L1 have associated small disc protrusions but no mass effect on the cord. Dictated by: Dictated on workstation # [id number]
== END ==
LOC: RAD 12:59
PROVIDERS: ATTEND Physical Medicine & Rehabilitation
DX: S29.9XXD Unspecified injury of thorax, subsequent encounter (principal); M51.24 Other intervertebral disc displacement, thoracic region
CPT/HCPCS: 72146

== ENCOUNTER 2020-01-25 20:24 | Emergency (ER) | payer OTHER, MEDICAID ==
[~2020-01-25] VITALS: Ht 167 cm; Wt 54.0 kg
[2020-01-25 20:25] VITALS: BP 126/71
--- NOTE | 2020-01-25 20:40 | ED General ---
General Chief Complaint: Chest Pain Stated Complaint: CHEST PAIN,TROUBLE/PAINFUL BREATHING History of Present Illness Date Seen by Provider: Jan 25, 2020 Time Seen by Provider: 20:40 Initial Comments Patient presenting to emergency department for evaluation of chest pain that has been going on since yesterday. She describes it as a sharp pain in her chest that is worse when she takes a deep breath. She feels a pressure sensation as well constantly. She says she has been fighting an upper respiratory infection for the past 2 weeks. She was on a course of cefdinir approximately one week ago. She says that she feels short of breath some of the time. She says she has a history of anxiety but no hypertension diabetes high cholesterol smoking or family history of heart disease. So she denies being on any oral contraceptive pills recent travel immobility or prior DVT or PE. Her heart score is equal to 0 and her perc score is equal to 0 as well. She is in no obvious distress with normal vital signs. Allergies and Home Medications Allergies Coded Allergies: No Known Drug Allergies (Unverified , 07/11/19) Home Medications Amoxicillin 500 Mg Capsule, 500 MG PO TID Prescribed by: RAJESH MERCHNAT on 07/30/19 1424 Cyclobenzaprine HCl 10 Mg Tablet, 10 MG PO Q8H PRN for SPASMS Prescribed by: PARAMJIT SÁNCHEZ on 09/10/19 0112 Ibuprofen 800 Mg Tablet, 600 MG PO Q8H PRN for PAIN-MILD Prescribed by: RAJESH MERCHANT on 07/30/19 1424 Naproxen 500 Mg Tablet, 500 MG PO BID Prescribed by: PARAMJIT SÁNCHEZ on 09/10/19 0112 Ondansetron 4 Mg Tab.rapdis, 4 MG PO TID Prescribed by: RIZWAN WARREN on 08/14/19 1403 Prednisone 20 Mg Tab, 40 MG PO DAILY Prescribed by: PATRICIA WARREN on 07/11/19 1825 Promethazine HCl 25 Mg Tablet, 25 MG PO Q6H PRN for NAUSEA/VOMITING Prescribed by: BENJAMIN LAGUNA on 08/18/19 1744 Sulfamethoxazole/Trimethoprim 1 Each Tablet, 1 EACH PO BID Prescribed by: RIZWAN WARREN on 08/14/19 1403 Tramadol HCl 50 Mg Tablet, 50 MG PO Q6H Prescribed by: RAJESH MERCHANT on 07/30/19 1424 Tramadol HCl 50 Mg Tablet, 50 MG PO Q6H PRN for PAIN Prescribed by: BENJAMIN LAGUNA on 08/18/19 0695 Patient Home Medication List Home Medication List Reviewed: Yes Review of Systems Review of Systems Constitutional: no symptoms reported EENTM: no symptoms reported Respiratory: cough, short of breath Cardiovascular: chest pain Gastrointestinal: no symptoms reported Genitourinary: no symptoms reported Musculoskeletal: no symptoms reported Skin: no symptoms reported Psychiatric/Neurological: No Symptoms Reported All Other Systems Reviewed Negative Unless Noted: Yes Past Mgmmsxn-Ddmspv-Janfkd Hx Patient Social History Alcohol Beverage of Choice: Wine 2nd Hand Smoke Exposure: No Recent Foreign Travel: No Contact w/Someone Who Travel: No Recent Hopitalizations: No Immunizations Up To Date Tetanus Booster (TDap): Less than 5yrs Seasonal Allergies Seasonal Allergies: No Past Medical History Surgeries: Yes (Lt arm) Orthopedic Respiratory: No Cardiac: No Neurological: No Genitourinary: No Gastrointestinal: No Musculoskeletal: No Endocrine: No HEENT: No Cancer: No Psychosocial: No Integumentary: No Blood Disorders: No Physical Exam Vital Signs Capillary Refill : Height, Weight, BMI Height: 5'4.00" Weight: 120lbs. oz. 54.004704lk; 17.00 BMI Method:Stated General Appearance: No Apparent Distress, WD/WN HEENT: PERRL/EOMI Neck: Supple Respiratory: No Respiratory Distress, Wheezing, Other (reproducible anterior chest wall tenderness to palpation) Cardiovascular: Regular Rate, Rhythm Gastrointestinal: Non Tender, Soft Back: Normal Inspection Extremity: Normal Capillary Refill Neurologic/Psychiatric: Alert, Oriented x3 Skin: Warm/Dry Progress/Results/Core Measures Suspected Sepsis SIRS Temperature: Pulse: Respiratory Rate: Blood Pressure / Mean: Results/Orders My Orders Orders - ANIKET BROWN DO Chest Pa/Lat (2 View) (01/25/20 20:39) Albuterol/Ipra Inhalation Soln (Duoneb I (01/25/20 20:45) Svn Small Volume Nebulizer (01/25/20 20:39) Ibuprofen Tablet (Motrin Tablet) (01/25/20 20:45) Albuterol/Ipra Inhalation Soln (Duoneb I (01/25/20 20:53) Ibuprofen Tablet (Motrin Tablet) (01/25/20 20:53) Ekg Tracing (01/25/20 21:16) Medications Given in ED Current Medications Medications Dose Ordered Sig/Susana Route Start Time Stop Time Status Last Admin Dose Admin Albuterol/ Ipratropium 3 ml ONCE ONCE INH 01/25/20 20:45 01/25/20 21:16 DC 01/25/20 21:00 3 ML Ibuprofen 600 mg ONCE ONCE PO 01/25/20 20:45 01/25/20 21:16 DC 01/25/20 21:00 600 MG Vital Signs/I&O Capillary Refill : Progress Note : Progress Note Patient likely has costochondritis and pleurisy. I will give her breathing treatments ibuprofen and check a chest x-ray. EKG is normal with no signs of ischemia or conduction issues. Chest x-ray is negative and patient feels much better after getting ibuprofen and DuoNeb. Given patient appears well with normal vital signs benign physical exam and workup she'll be discharged in stable condition told to follow up primary care provider within 2-3 days and come back to the ED sooner with worsening pain shortness of breath or other general concerns. Patient aware and agreeable with plan and verbalized understanding of the above instructions. Departure Impression Primary Impression: Pleuritic chest pain Additional Impression: Wheezing Disposition: 01 HOME, SELF-CARE Condition: Stable Departure-Patient Inst. Referrals: SELF,AHSAN BORJAS (PCP/Family) Primary Care Physician Patient Instructions: Pleuritic Chest Pain (DC) Scripts Albuterol Sulfate (PROAIR HFA) 1 Puff Puff 2 PUFF IH Q4H PRN for SHORTNESS OF BREATH, #1 INHALER 1 PUFF = 90 MCG Prov: ANIKET BROWN DO 01/25/20 Ibuprofen (Ibuprofen) 600 Mg Tablet 600 MG PO Q6H PRN for PAIN-MILD for 7 Days, TAB Prov: ANIKET BROWN DO 01/25/20 ANIKET BROWN DO Jan 25, 2020 20:40
[2020-01-25] MEDS ORDERED: IBUPROFEN 600 MG (MOTRIN) TAB PO ONE ×2 (20:45→20:53)
[2020-01-25] MEDS ORDERED: RT-ALBUTEROL/IPRATROPIUM 3 ML (DUONEB) VIAL INH ONE (20:45)
[2020-01-25] MEDS ORDERED: RT-ALBUTEROL/IPRATROPIUM 3 ML (DUONEB) VIAL ONE (20:53)
--- NOTE | 2020-01-25 21:14 | Diagnostic Imaging Report ---
Indication: Cough PA and lateral views of the chest are obtained with comparison made to study of 07/27/2019 FINDINGS: Heart size and pulmonary vascularity are within normal limits, and the lungs are clear, bilaterally. IMPRESSION: Unremarkable chest. Dictated by: Dictated on workstation # [id number]
[2020-01-25] MEDS ORDERED: IBUP-1773 PO (21:26)
[2020-01-25] MEDS ORDERED: RT-ALBUINH IH (21:26)
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
== END 2020-01-25 21:32 | disposition home or self-care (01) ==
LOC: EDUNIT# 20:24 → ER FS 20:25
DX: R07.81 Pleurodynia (principal); R06.2 Wheezing; Z79.52 Long term (current) use of systemic steroids
CPT/HCPCS: 71046; 93005

== ENCOUNTER 2020-02-09 20:23 | Emergency (ER) | payer OTHER, MEDICAID ==
[~2020-02-09] VITALS: Ht 167.7 cm; Wt 51.7 kg
[~2020-02-09 20:23] MED LIST changes: +IBUP-1773 PO; +RT-ALBUINH IH
--- NOTE | 2020-02-09 20:30 | ED General ---
General Stated Complaint: SOA,CHILLS,COUGH Source of Information: Patient Exam Limitations: No Limitations History of Present Illness Date Seen by Provider: Feb 09, 2020 Time Seen by Provider: 20:30 Initial Comments 24-year-old female presents with cough, subjective fever, but she feels like he has some shortness of breath. Patient reports that she's been having a cough for a couple weeks. She seen her primary care provider and reports they started her on inhalers. Patient presents today because she states she continues to feel like she has some shortness of breath. Patient has no known Covid 19 exposure, n o travel history. Allergies and Home Medications Allergies Coded Allergies: No Known Drug Allergies (Unverified , 07/11/19) Home Medications Albuterol Sulfate 1 Puff Puff, 2 PUFF IH Q4H PRN for SHORTNESS OF BREATH 1 PUFF = 90 MCG Prescribed by: ANIKET BROWN on 01/25/202125 Amoxicillin 500 Mg Capsule, 500 MG PO TID Prescribed by: RAJESH MERCHANT on 07/30/19 142 Cyclobenzaprine HCl 10 Mg Tablet, 10 MG PO Q8H PRN for SPASMS Prescribed by: PARAMJIT SÁNCHEZ on 09/10/19 011 Ibuprofen 800 Mg Tablet, 600 MG PO Q8H PRN for PAIN-MILD Prescribed by: RAJESH MERCHANT on 07/30/19 1424 Ibuprofen 600 Mg Tablet, 600 MG PO Q6H PRN for PAIN-MILD Prescribed by: ANIKET BROWN on 01/25/202125 Naproxen 500 Mg Tablet, 500 MG PO BID Prescribed by: PARAMJIT SÁNCHEZ on 09/10/19 011 Ondansetron 4 Mg Tab.rapdis, 4 MG PO TID Prescribed by: RIZWAN WARREN on 08/14/19 140 Prednisone 20 Mg Tab, 40 MG PO DAILY Prescribed by: PATRICIA WARREN on 07/11/19 1825 Promethazine HCl 25 Mg Tablet, 25 MG PO Q6H PRN for NAUSEA/VOMITING Prescribed by: BENJAMIN LAGUNA on 08/18/19 1744 Sulfamethoxazole/Trimethoprim 1 Each Tablet, 1 EACH PO BID Prescribed by: RIZWAN WARREN on 08/14/19 1403 Tramadol HCl 50 Mg Tablet, 50 MG PO Q6H Prescribed by: RAJESH MERCHANT on 07/30/19 1424 Tramadol HCl 50 Mg Tablet, 50 MG PO Q6H PRN for PAIN Prescribed by: BENJAMIN LAGUNA on 08/18/19 1735 Patient Home Medication List Home Medication List Reviewed: Yes Review of Systems Review of Systems Constitutional: chills Respiratory: cough, short of breath Cardiovascular: No chest pain Gastrointestinal: no symptoms reported Genitourinary: no symptoms reported Musculoskeletal: no symptoms reported Skin: no symptoms reported Past Towgbuq-Nbeldj-Ziptwi Hx Past Med/Social Hx: Reviewed Nursing Past Med/Soc Hx Patient Social History Alcohol Beverage of Choice: Wine 2nd Hand Smoke Exposure: No Recent Foreign Travel: No Contact w/Someone Who Travel: No Recent Hopitalizations: No Immunizations Up To Date Tetanus Booster (TDap): Less than 5yrs Seasonal Allergies Seasonal Allergies: No Past Medical History Surgeries: No Orthopedic Respiratory: No Cardiac: No Neurological: No Genitourinary: No Gastrointestinal: No Musculoskeletal: No Endocrine: No HEENT: No Cancer: No Psychosocial: No Integumentary: No Blood Disorders: No Physical Exam Vital Signs Vital Signs - First Documented 02/09/20 20:33 Temp 37.7 Pulse 98 Resp 18 B/P (MAP) 120/65 (83) Pulse Ox 100 O2 Delivery Room Air Capillary Refill : Height, Weight, BMI Height: 5'4.00" Weight: 120lbs. oz. 54.238538su; 19.00 BMI Method:Stated General Appearance: No Apparent Distress, WD/WN Neck: Normal Inspection, Non Tender Respiratory: Lungs Clear, Normal Breath Sounds, No Accessory Muscle Use Cardiovascular: Regular Rate, Rhythm, No Edema Gastrointestinal: Normal Bowel Sounds, No Organomegaly, Non Tender, Soft Neurologic/Psychiatric: Alert, Oriented x3, Normal Mood/Affect, lawn specialist II-XII Norm as Tested Skin: Normal Color, Warm/Dry Progress/Results/Core Measures Suspected Sepsis SIRS Temperature: Pulse: Respiratory Rate: Blood Pressure / Mean: Results/Orders Lab Results Laboratory Tests Test 02/09/20 20:40 Range/Units Group A Streptococcus Screen NEGATIVE NEGATIVE My Orders Orders - SRAVANI PATEL DO Rapid Strep A Screen (02/09/20 20:35) Influenza A And B Antigens (02/09/20 20:35) Rsv Antigen (02/09/20 20:35) Chest Pa/Lat (2 View) (02/09/20 20:35) Vital Signs/I&O 02/09/20 20:33 Temp 37.7 Pulse 98 Resp 18 B/P (MAP) 120/65 (83) Pulse Ox 100 O2 Delivery Room Air Capillary Refill : Progress Note : Progress Note Patient with normal workup negative for influenza RSV and strep. Patient with no known contacts with Covid 19 and testing is not indicated. Patient has a normal chest x-ray. Patient was seen here on 01/25/20 with complaints of a pleuritic chest pain and told that ER provider at that time that she was having cough, shortness of breath etc. for 2 weeks. She told me today that she had been having it for "2 weeks". Patient has completely normal vital signs clear lungs with no indications for anything acute or emergent. Patient should follow with her primary care provider for workup for other etiologies. However due to the recurrent Covid 19 crisis with recommendation by CDC and get this department at the [facility] for self quarantining with cough and fever I will place her on a 14 day home quarantine. Diagnostic Imaging Diagonstic Imaging: Xray Plain Films/CT/US/NM/MRI: chest Comments PRAKASH: KATHY MALDONADO [facility] REC#: [id number] PT STATUS: REG ER : 1995 PHYSICIAN: SRAVANI PATEL DO ADMIT DATE: 02/09/20/ER FS Draft Date of Exam:02/09/20 CHEST PA/LAT (2 VIEW) INDICATION: Short of air, chills. EXAMINATION: PA and lateral views of the chest. FINDINGS: The heart size and vascularity are normal. Lungs are clear. There is no effusion. There is no acute bony abnormality. IMPRESSION: No acute abnormality is seen. There is no change from 01/25/2020. Departure Impression Primary Impression: Viral upper respiratory infection Additional Impression: Chronic cough Disposition: HOME, SELF-CARE Condition: Stable Departure-Patient Inst. Referrals: AHSAN OCHOA MD (PCP/Family) Primary Care Physician Patient Instructions: Viral Upper Respiratory Infection, Adult (DC) Add. Discharge Instructions: You will need to self quarantine for 14 days. You should refrain from going out in public for anything besides emergencies and basic necessities per CDC recommendations and [facility] recommendations. Please wear a mask when out in public. he emergency department focuses on treating and ruling out life threatening diseases. Whenever possible, a diagnosis is given. However, most patients are given and impression based on the history, physical exam, and workup during her brief time in the ER. Information about probable diagnosis and other education material has been provided. Please take time to read and understand this information. It is very important that you follow up with a doctor as discussed during her visit today. Failure to adhere to your follow-up instructions mainly due to severe disability, injury, or so please make sure and keep her appointments. Please keep in mind the emergency department is not designed to be her primary care or "family doctor" and non-urgent issues are best evaluated by an outpatient physician SRAVANI PATEL DO Feb 09, 2020 20:30
[2020-02-09 20:33] VITALS: BP 120/65
--- NOTE | 2020-02-09 20:58 | Diagnostic Imaging Report ---
INDICATION: Short of air, chills. EXAMINATION: PA and lateral views of the chest. FINDINGS: The heart size and vascularity are normal. Lungs are clear. There is no effusion. There is no acute bony abnormality. IMPRESSION: No acute abnormality is seen. There is no change from 01/25/2020. Dictated by: Dictated on workstation # [id number]
--- OUTSIDE RECORDS SUMMARY | 2020-02-09 23:18 | XMS REPORT | Continuity of Care Document ---
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 08/03/2019 ROVENSTINE DO, RAJESH L Ot N39.0 URINARY TRACT INFECTION, SITE NOT SPECIF 08/03/2019 ROVENSTINE DO, RAJESH L Ot N83.201 UNSPECIFIED OVARIAN CYST, RIGHT SIDE 08/03/2019 ROVENSTINE DO, RAJESH L Ot R10.31 RIGHT LOWER QUADRANT PAIN 08/03/2019 ROVENSTINE DO, RAJESH L Ot 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 SYSTEMIC STER 08/14/2019 RIZWAN [...] USE OF SYSTEMIC STER 08/18/2019 JASE, BENJAMIN MICROECONOMICS PROFESSOR Ot M54.9 DORSALGIA, UNSPECIFIED 08/18/2019 JASE, BENJAMIN MICROECONOMICS PROFESSOR Ot R10.31 RIGHT LOWER QUADRANT PAIN 08/18/2019 JASE, BENJAMIN MICROECONOMICS PROFESSOR Ot R11.0 NAUSEA 08/18/2019 JASE, BENJAMIN MICROECONOMICS PROFESSOR Ot Z79.52 CORRECTION (CURRENT) USE OF SYSTEMIC STER 08/20/2019 JASE, BENJAMIN MICROECONOMICS PROFESSOR Ot M54.9 DORSALGIA, UNSPECIFIED 08/20/2019 JASE, BENJAMIN MICROECONOMICS PROFESSOR Ot R10.31 RIGHT LOWER QUADRANT PAIN 08/20/2019 JASE, BENJAMIN MICROECONOMICS PROFESSOR Ot R11.0 NAUSEA 08/20/2019 JASE, BENJAMIN MICROECONOMICS PROFESSOR Ot 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 Results Test Result Range CULTURE, URINE - 03/27/19 12:32 CULTURE, URINE, ROUTINE SEE NOTE NRG CULTURE, URINE - 04/14/19 13:51 CULTURE, URINE, ROUTINE SEE NOTE NRG CULTURE, URINE - 07/27/19 11:28 CULTURE, URINE, ROUTINE SEE NOTE NRG CULTURE, URINE - 07/30/19 00:00 CULTURE, URINE, ROUTINE SEE NOTE NR PATIENT ID APPROVAL TIQ DOCUMENTATION - 07/30/19 00:00 COMMENT NRG CONTACT ERIBERTO CARTER PYROTECHNIC ASSEMBLER NRG TESTS AFFECTED URINE CULT NRG Urine [...] NRG Blood erythrocyte morphology finding identification [facility] Comprehensive metabolic panel - 07/30/19 12:20 Serum [...] 13:11 CULTURE, URINE, ROUTINE SEE NOTE NRG CBC - 02/07/20 15:26 WHITE BLOOD CELL COUNT 6.9 Thousand/uL 3 .8-10.8 RED BLOOD CELL COUNT 4.44 Million/uL 3.8 0-5.10 HEMOGLOBIN 14.0 g/dL 11.7-15.5 HEMATOCRIT 42.0 % 35.0-45.0 MCV 94.6 fL 80.0-100.0 MCH 31.5 pg 27.0-33.0 MCHC 33.3 g/dL 32.0-36.0 RDW 12.0 % 11.0-15.0 PLATELET COUNT 207 Thousand/uL 140-400 MPV 11.4 fL 7.5-12.5 ABSOLUTE NEUTROPHILS 4485 cells/uL 1500- 7800 ABSOLUTE LYMPHOCYTES 1649 cells/uL 850-3 900 ABSOLUTE MONOCYTES 662 cells/uL 200-950 ABSOLUTE EOSINOPHILS 83 cells/uL 15-500 ABSOLUTE BASOPHILS 21 cells/uL 0-200 NEUTROPHILS 65 % NRG LYMPHOCYTES 23.9 % NRG MONOCYTES 9.6 % NRG EOSINOPHILS 1.2 % NRG BASOPHILS 0.3 % NRG Streptococcus pyogenes antigen detection - 02/09/20 20:40 Streptococcus pyogenes antigen detection NEGATIVE NEGATIVE Influenza virus A and B antigen detectio n - 02/09/20 20:40 FLU RESULT NEGATIVE FOR INFLUENZA A AND B ANTIGENS BY IA NRG Respiratory syncytial virus antigen dete ction - 02/09/20 20:40 RSVRESULT NEGATIVE BY IMMUNOASSAY NRG Encounters ACCT No. Visit Date/Time Discharge Status Pt. Type Provider Facility Loc./Unit Complaint [id number] 11/09/2019 14:15:00 11/09/2019 23:59: 59 [facility] Outpatient SELF, AHSAN Carrillo [facility] [id number] 02/07/2020 17:40:00 Document Registration [id number] 10/11/2019 13:00:00 Document Registration [id number] 08/19/2019 10:45:00 Document Registration [id number] 07/30/2019 11:53:00 Document Registration [id number] 07/30/2019 11:20:00 Document Registration [id number] 07/27/2019 09:00:00 Document Registration [id number] 04/14/2019 13:40:00 Document Registration [id number] 03/27/2019 10:50:00 Document Registration [id number] 02/09/2020 20:25:00 21:14:00 DIS Emergency PATEL NORA STEWARDR Jonah [facility] ER FS SOA,CHILLS,COUGH [id number] 01/25/2020 20:25:00 21:32:00 DIS Outpatient KEVIN STEWARD ANIKET Jurado [facility] ER FS CHEST PAIN,TROUBLE/PAIN FUL BREATHING [id number] 01/05/2020 12:59:00 23:59:59 CLS Outpatient OWN KALYN BORJAS [facility] RAD UNSPECIFIED INJ OF THOR AX [id number] 09/09/2019 23:04:00 01:25:00 DIS Emergency GONZALO BORJAS, PARAMJIT Trinidad [facility] ER FS BACK PAIN, BACK INJ [id number] 08/18/2019 15:41:00 17:52:00 DIS Emergency BENJAMIN LAGUNA [facility] ER NAUSEA, ABD AND BACK PA IN [id number] 08/14/2019 12:39:00 14:20:00 DIS Emergency RIZWAN WARREN MD [facility] ER FS NAUSEA,ABD PAIN [id number] 07/30/2019 12:10:00 14:47:00 DIS Emergency ROVENSTRAJESH LEWIS DO [facility] ER FS RT SIDED ABD PA IN [id number] 07/27/2019 09:15:00 23:59:59 CLS Outpatient AHSAN OCHOA MD [facility] RAD FS M54.9 [id number] 07/11/2019 17:15:00 18:45:00 DIS Emergency BRIANA BORJAS, PATRICIA Nava [facility] ER FS BACK/NECK PAIN [id number] 03/18/2017 09:03:00 7 23:59:59 CLS Outpatient Suhail OB /[facility]I [facility] [id number] 12/19/2016 09:30:00 7 23:59:59 CLS Outpatient Suhail OB /[facility] [id number] 12/05/2016 13:47:00 7 23:59:59 CLS Outpatient Suhail OB /[facility] [id number] 11/29/2016 12:36:47 7 23:59:59 CLS Outpatient Fe Ventura [facility] osono for S<D [id number] 11/21/2016 11:52:24 6 23:59:59 CLS Outpatient Dandre Esquivel [facility] ob check [id number] 11/04/2016 15:47:02 6 23:59:59 CLS Outpatient Fe Ventura [facility] ob check [id number] 11/01/2016 11:48:00 6 23:59:59 CLS Outpatient Suhail OB /[facility] [id number] 11/01/2016 11:44:00 6 23:59:59 CLS Outpatient Suhail OB /[facility] [id number] 10/25/2016 08:04:46 6 23:59:59 CLS Outpatient BRANT WESTBROOK [facility] [id number] 10/25/2016 00:00:00 6 23:59:59 CLS Outpatient Scanned Documents
== END 2020-02-09 21:14 | disposition home or self-care (01) ==
LOC: EDUNIT# 20:23 → ER FS 20:25
DX: J06.9 Acute upper respiratory infection, unspecified (principal); Z79.52 Long term (current) use of systemic steroids
CPT/HCPCS: 71046; 87420; 87430; 87804

== ENCOUNTER → 2020-02-10 | Outpatient (CLI) | payer OTHER, MEDICAID ==
[2020-02-10 17:00] LABS: HEMATOCRIT 42 % (35-52); HEMOGLOBIN 14.3 G/DL (11.5-16.0); MEAN CORPUSCULAR HEMOGLOBIN 31 PG (25-34); MEAN CORPUSCULAR HGB CONC 34 G/DL (32-36); MEAN CORPUSCULAR VOLUME 92 FL (80-99); MEAN PLATELET VOLUME 10.7 FL (7.4-10.4); PLATELET COUNT 229 10^3/uL (130-400); RED CELL DISTRIBUTION WIDTH 12.2 % (10.0-14.5)
[2020-02-10 17:01] LABS: BASOPHILS % (AUTO) 0 % (0-10); EOSINOPHILS % (AUTO) 0 % (0-10); LYMPHOCYTES # (AUTO) 0.8 X 10^3 (1.0-4.0); LYMPHOCYTES % (AUTO) 8 % (12-44); MONOCYTES # (AUTO) 0.3 X 10^3 (0.0-1.0); MONOCYTES % (AUTO) 3 % (0-12); NEUTROPHILS # (AUTO) 8.9 X 10^3 (1.8-7.8); NEUTROPHILS % (AUTO) 89 % (42-75)
[2020-02-10 17:12] LABS: BAND NEUTROPHILS 0 %; BASOPHILS % (MANUAL) 0 %; EOSINOPHILS % (MANUAL) 0 %; LYMPHOCYTES % (MANUAL) 15 %; MONOCYTES % (MANUAL) 4 %; NEUTROPHILS % (MANUAL) 80 %
[2020-02-10 17:13] LABS: METAMYELOCYTES % 0 %; MYELOCYTES % 1 %
[2020-02-10 17:15] LABS: POTASSIUM 4.1 MMOL/L (3.6-5.0); SODIUM 141 MMOL/L (135-145)
[2020-02-10 17:16] LABS: ALANINE AMINOTRANSFERASE 13 U/L (0-55); ALBUMIN 4.8 GM/DL (3.2-4.5); ALKALINE PHOSPHATASE 58 U/L (40-136); BILIRUBIN,TOTAL 0.3 MG/DL (0.1-1.0); BUN/CREATININE RATIO 15; CALCIUM 9.6 MG/DL (8.5-10.1); CARBON DIOXIDE 24 MMOL/L (21-32); CHLORIDE 102 MMOL/L (98-107); CREATININE SERUM 0.87 MG/DL (0.60-1.30); GFR ESTIMATED > 60; GLUCOSE 133 MG/DL (70-105); TOTAL PROTEIN 8.4 GM/DL (6.4-8.2)
== END ==
LOC: LAB FS 16:42
PROVIDERS: ATTEND Nurse Practitioner Family
DX: R06.02 Shortness of breath (principal); R07.9 Chest pain, unspecified
CPT/HCPCS: 36415; 80053; 85007; 85027

== ENCOUNTER → 2020-02-16 | Outpatient (CLI) | payer OTHER, MEDICAID ==
--- NOTE | 2020-02-16 11:18 | Diagnostic Imaging Report ---
PROCEDURE: CT chest without contrast. TECHNIQUE: Multiple contiguous axial images were obtained through the chest without the use of intravenous contrast. Auto Exposure Controls were utilized during the CT exam to meet ALARA standards for radiation dose reduction. INDICATION: Shortness of breath and cough. COMPARISON: No prior CT chest study is available for comparison. Comparison is made with chest radiograph from 02/09/2020. FINDINGS: No axillary lymphadenopathy is detected. Hilar and mediastinal evaluation is limited without intravenous contrast. No pericardial or pleural fluid is identified. Central airways are patent. Pulmonary parenchyma appears to be clear. No airspace consolidation is identified. No groundglass opacities are seen. No nodule or mass is identified. The upper abdomen is unremarkable. IMPRESSION: Unremarkable noncontrast CT of the chest. Dictated by: Dictated on workstation # [id number]
== END ==
LOC: RAD FS 09:43
PROVIDERS: ATTEND Nurse Practitioner Family
DX: R06.02 Shortness of breath (principal); R07.89 Other chest pain
CPT/HCPCS: 71250

== ENCOUNTER → 2020-06-01 | Outpatient (CLI) | payer OTHER, MEDICAID ==
[2020-06-01 11:25] LABS: HEMATOCRIT 40 % (35-52); MEAN CORPUSCULAR HEMOGLOBIN 32 PG (25-34); MEAN CORPUSCULAR HGB CONC 35 G/DL (32-36); MEAN CORPUSCULAR VOLUME 92 FL (80-99); RED CELL DISTRIBUTION WIDTH 11.9 % (10.0-14.5); WHITE BLOOD COUNT 6.6 10^3/uL (4.3-11.0)
[2020-06-01 11:26] LABS: BASOPHILS % (AUTO) 0 % (0-10); EOSINOPHILS % (AUTO) 1 % (0-10); LYMPHOCYTES # (AUTO) 1.9 X 10^3 (1.0-4.0); LYMPHOCYTES % (AUTO) 28 % (12-44); MEAN PLATELET VOLUME 10.4 FL (7.4-10.4); MONOCYTES # (AUTO) 0.5 X 10^3 (0.0-1.0); MONOCYTES % (AUTO) 8 % (0-12); NEUTROPHILS # (AUTO) 4.2 X 10^3 (1.8-7.8); NEUTROPHILS % (AUTO) 63 % (42-75); PLATELET COUNT 189 10^3/uL (130-400)
[2020-06-01 12:17] LABS: CARBON DIOXIDE 27 MMOL/L (21-32); CHLORIDE 103 MMOL/L (98-107); POTASSIUM 4.5 MMOL/L (3.6-5.0); SODIUM 139 MMOL/L (135-145)
[2020-06-01 12:18] LABS: ALANINE AMINOTRANSFERASE 12 U/L (0-55); ALKALINE PHOSPHATASE 51 U/L (40-136); BILIRUBIN,TOTAL 0.4 MG/DL (0.1-1.0); BUN/CREATININE RATIO 12; CALCIUM 9.4 MG/DL (8.5-10.1); CREATININE SERUM 0.77 MG/DL (0.60-1.30); GFR ESTIMATED > 60; GLUCOSE 84 MG/DL (70-105); TOTAL PROTEIN 7.4 GM/DL (6.4-8.2)
[2020-06-01 12:19] LABS: ALBUMIN 4.7 GM/DL (3.2-4.5)
[2020-06-01 16:00] LABS: FREE T4 (FREE THYROXINE) 0.93 NG/DL (0.70-1.48)
== END ==
LOC: LAB FS 11:02
PROVIDERS: ATTEND Nurse Practitioner Family
DX: G43.009 Migraine without aura, not intractable, without status migrainosus (principal); J02.9 Acute pharyngitis, unspecified; R53.83 Other fatigue
CPT/HCPCS: 36415; 80053; 84439; 84443; 85025

== ENCOUNTER 2020-08-13 20:13 | Emergency (ER) | payer OTHER, MEDICAID ==
[~2020-08-13] VITALS: Ht 167.7 cm; Wt 51.7 kg
--- NOTE | 2020-08-13 20:23 | ED General ---
General Chief Complaint: Oral/Throat Problems Stated Complaint: SORE THROAT/HEADACHES Source of Information: Patient History of Present Illness Date Seen by Provider: Aug 13, 2020 Time Seen by Provider: 20:18 Initial Comments 24-year-old female presenting with complaints of chills and sore throat for 2 days. She states that she does have allergies and asthma and feels that those have been acting up. She has a history of frequent strep throat as well. She has not had any fevers but has had chills. She is around a lot of people at her 2 jobs and feels that she has been exposed to a lot of illness. She was having increased throat pain and pain with swallowing today. When she got home this evening her grandmother told her she needed to come to the ER to be evaluated and checked for strep throat. She denies any dizziness or lightheadedness. She does have some frontal sinus headache pain. She is not having any cough but again does have some mild wheezing and shortness of breath at times. Allergies and Home Medications Allergies Coded Allergies: No Known Drug Allergies (Unverified , 07/11/19) Home Medications Albuterol Sulfate 1 Puff Puff, 2 PUFF IH Q4H PRN for SHORTNESS OF BREATH 1 PUFF = 90 MCG Prescribed by: ANIKET BROWN on 01/25/202125 Amoxicillin 500 Mg Capsule, 500 MG PO TID Prescribed by: RAJESH MERCHANT on 07/30/19 1424 Cyclobenzaprine HCl 10 Mg Tablet, 10 MG PO Q8H PRN for SPASMS Prescribed by: PARAMJIT SÁNCHEZ on 09/10/19 011 Ibuprofen 800 Mg Tablet, 600 MG PO Q8H PRN for PAIN-MILD Prescribed by: RAJESH MERCHANT on 07/30/19 1424 Ibuprofen 600 Mg Tablet, 600 MG PO Q6H PRN for PAIN-MILD Prescribed by: ANIKET BROWN on 01/25/202125 Naproxen 500 Mg Tablet, 500 MG PO BID Prescribed by: PARAMJIT SÁNCHEZ on 09/10/19 011 Ondansetron 4 Mg Tab.rapdis, 4 MG PO TID Prescribed by: RIZWAN WARREN on 08/14/19 1403 Prednisone 20 Mg Tab, 40 MG PO DAILY Prescribed by: PATRICIA WARREN on 07/11/19 1825 Promethazine HCl 25 Mg Tablet, 25 MG PO Q6H PRN for NAUSEA/VOMITING Prescribed by: BENJAMIN LAGUNA on 08/18/19 1744 Sulfamethoxazole/Trimethoprim 1 Each Tablet, 1 EACH PO BID Prescribed by: RIZWAN WARREN on 08/14/19 1403 Tramadol HCl 50 Mg Tablet, 50 MG PO Q6H Prescribed by: RAJESH MERCHANT on 07/30/19 1424 Tramadol HCl 50 Mg Tablet, 50 MG PO Q6H PRN for PAIN Prescribed by: BENJAMIN LAGUNA on 08/18/19 1735 Patient Home Medication List Home Medication List Reviewed: Yes Review of Systems Review of Systems Constitutional: chills; No dizziness, No fever; malaise EENTM: throat pain; No ear discharge, No ear pain, No blurred vision, No hoarseness, No epistaxis, No nose congestion, No nose pain, No throat swelling Respiratory: No cough, No hemoptysis; short of breath (occasional); No stridor; wheezing (occasional due to her asthma) Cardiovascular: No chest pain Gastrointestinal: no symptoms reported Genitourinary: no symptoms reported Musculoskeletal: no symptoms reported Skin: no symptoms reported Psychiatric/Neurological: Headache (frontal sinus headache) Hematologic/Lymphatic: No Symptoms Reported Immunological/Allergic: see HPI (seasonal allergies) Past Ptjowak-Kkckub-Szoelg Hx Past Med/Social Hx: Reviewed Nursing Past Med/Soc Hx Patient Social History Alcohol Beverage of Choice: Wine 2nd Hand Smoke Exposure: No Recent Foreign Travel: No Contact w/Someone Who Travel: No Recent Hopitalizations: No Immunizations Up To Date Tetanus Booster (TDap): Less than 5yrs Seasonal Allergies Seasonal Allergies: No Past Medical History Surgeries: No Orthopedic Respiratory: No Cardiac: No Neurological: No Genitourinary: No Gastrointestinal: No Musculoskeletal: No Endocrine: No HEENT: No Cancer: No Psychosocial: No Integumentary: No Blood Disorders: No Physical Exam Vital Signs Vital Signs - First Documented 08/13/20 20:25 Temp 36.7 Pulse 79 Resp 16 B/P (MAP) 102/57 (72) Pulse Ox 100 O2 Delivery Room Air Capillary Refill : Height, Weight, BMI Height: 5'4.00" Weight: 120lbs. oz. 54.368183zx; 18.00 BMI Method:Stated General Appearance: No Apparent Distress, WD/WN HEENT: PERRL/EOMI, TMs Normal, Moist Mucous Membranes, Pharyngeal Erythema; No Tonsillar Exudate, No Tonsillar Enlargement Neck: Full Range of Motion, Normal Inspection, Non Tender, Supple Respiratory: Chest Non Tender, Lungs Clear, Normal Breath Sounds, No Accessory Muscle Use, No Respiratory Distress Cardiovascular: Regular Rate, Rhythm, Normal Peripheral Pulses Extremity: Normal Capillary Refill, No Pedal Edema Neurologic/Psychiatric: Alert, Oriented x3, No Motor/Sensory Deficits, Normal Mood/Affect, foundry hand II-XII Norm as Tested Skin: Normal Color, Warm/Dry; No Rash Progress/Results/Core Measures Suspected Sepsis SIRS Temperature: Pulse: Respiratory Rate: Blood Pressure / Mean: Results/Orders Lab Results Laboratory Tests Test 08/13/20 20:40 Range/Units Group A Streptococcus Screen NEGATIVE NEGATIVE My Orders Orders - PARAMJIT SÁNCHEZ MD Rapid Strep A Screen (08/13/20 20:35) Dexamethasone Injection (Decadron Inje (08/13/20 20:36) Vital Signs/I&O 08/13/20 20:25 Temp 36.7 Pulse 79 Resp 16 B/P (MAP) 102/57 (72) Pulse Ox 100 O2 Delivery Room Air Capillary Refill : Progress Note #1: Progress Note Obtain a rapid strep swab to evaluate for her throat pain and chills however her physical exam findings of her throat are not convincing for infection. With her history of allergies and asthma well give the dose of Decadron to help with the symptoms and see if it helps with her throat pain. Depending on the rapid strep test if it is positive we will treat with an antibiotic. If it is negative will just use the steroid dose and wait for the strep culture. Progress Note #2: Time: 20:57 Progress Note rapid strep swab negative so will treat with the steroid shot tonight and continue symptomatic care. If culture positive she will get a call and start antibiotic. Otherwise treat for allergies and viral infection sources. Departure Impression Primary Impression: Pharyngitis Qualified Codes: J02.9 - Acute pharyngitis, unspecified Additional Impression: Seasonal allergies Disposition: 01 HOME, SELF-CARE Condition: Stable Departure-Patient Inst. Decision time for Depature: 21:03 Referrals: SELFAHSAN MD (PCP/Family) Primary Care Physician Patient Instructions: Seasonal Allergies (DC), Sore Throat, Adult (DC) Add. Discharge Instructions: Stay well hydrated and drink plenty of water. Try warm salt water gargles to help with pain and throat irritation. Check with clinic for continued problems/concerns. All discharge instructions reviewed with patient and/or family. Voiced understanding. Work/School Note: Work Release Form Date Seen in the Emergency Department: Aug 13, 2020 Return to Work: Aug 15, 2020 Restrictions: No Restrictions PARAMJIT SÁNCHEZ MD Aug 13, 2020 20:23
[2020-08-13 20:25] VITALS: BP 102/57
== END 2020-08-13 21:08 | disposition home or self-care (01) ==
LOC: EDUNIT# 20:13 → ER FS 20:15
DX: J02.9 Acute pharyngitis, unspecified (principal); J45.909 Unspecified asthma, uncomplicated; Z79.52 Long term (current) use of systemic steroids
CPT/HCPCS: 87430; 99284

== ENCOUNTER → 2020-12-07 | Outpatient (CLI) | payer OTHER, MEDICAID ==
--- NOTE | 2020-12-07 09:36 | Diagnostic Imaging Report ---
PROCEDURE: US Gallbladder. TECHNIQUE: Multiple real-time grayscale images were obtained over the right upper quadrant in various projections. INDICATION: Abdominal pain and bloating. FINDINGS: The liver is normal in size. There is a tiny nonspecific echogenic area in the right lobe likely tiny hemangioma. There are no other focal liver lesions. There is hepatopedal flow in the main portal vein. There is no biliary duct dilatation. Common bile duct measures 3 mm. There is no cholelithiasis, gallbladder wall thickening or pericholecystic fluid. Visualized portions of the pancreas are unremarkable. The aorta is nonaneurysmal. The IVC is patent. Right kidney is normal. There is no ascites. IMPRESSION: Nonspecific echogenic area in the liver measuring less than a centimeter likely small hemangioma. Otherwise, unremarkable right upper quadrant ultrasound. Dictated by: Dictated on workstation # [id number]
== END ==
LOC: RAD 08:30
PROVIDERS: ATTEND Surgery
DX: R19.7 Diarrhea, unspecified (principal); R10.9 Unspecified abdominal pain; R14.0 Abdominal distension (gaseous); R93.2 Abnormal findings on diagnostic imaging of liver and biliary tract
CPT/HCPCS: 76705

== ENCOUNTER → 2020-12-22 | Outpatient (CLI) | payer OTHER, MEDICAID ==
[~2020-12-22] MED LIST changes: +CATHETER FLUSH 10 ML SYR IV PRN
--- NOTE | 2020-12-22 14:02 | Diagnostic Imaging Report ---
INDICATION: Diarrhea and abdominal pain. Patient was administered 5.5 mCi technetium 99m Choletec intravenously and imaging over the abdomen was performed. After 60 minutes patient ingested one can of ensure. Gallbladder ejection fraction was calculated. Homogeneous uptake of activity by the liver with prompt excretion of activity into the gallbladder and common duct. There is passage of activity into the small bowel. Gallbladder ejection fraction is normal at 40%. IMPRESSION: Normal HIDA scan and gallbladder ejection fraction. Dictated by: Dictated on workstation # [id number]
== END ==
LOC: CARD 11:26
PROVIDERS: ATTEND Surgery
DX: R19.7 Diarrhea, unspecified (principal); R10.9 Unspecified abdominal pain; R14.0 Abdominal distension (gaseous)
CPT/HCPCS: 78227; A9537

== ENCOUNTER 2021-01-08 05:42 | Outpatient (RCR) | payer OTHER, MEDICAID ==
[~2021-01-08] VITALS: Ht 167.7 cm; Wt 51.7 kg
[~2021-01-08 05:42] MED LIST changes: -CATHETER FLUSH 10 ML SYR IV PRN
[2021-01-08] MEDS ORDERED: MONT10TA21 PO (12:53)
[2021-01-08] MEDS ORDERED: CLON2TAB12 PO (12:53)
== END 2021-01-11 14:29 | disposition home or self-care (01) ==
LOC: PREOP 05:42
PROVIDERS: ATTEND Surgery
DX: Z01.818 Encounter for other preprocedural examination (principal)

== ENCOUNTER → 2021-01-12 | Outpatient (CLI) | payer OTHER, MEDICAID ==
[~2021-01-12] MED LIST changes: +CLON2TAB12 PO; +MONT10TA21 PO
== END ==
LOC: LAB FS 10:20
PROVIDERS: ATTEND Surgery
DX: Z01.812 Encounter for preprocedural laboratory examination (principal); K29.70 Gastritis, unspecified, without bleeding; Z20.822 Contact with and (suspected) exposure to COVID-19
CPT/HCPCS: 87635

== ENCOUNTER 2021-01-15 07:57 | Day surgery (SDC) | payer OTHER, MEDICAID ==
[~2021-01-15] VITALS: Ht 167.7 cm; Wt 51.7 kg
[2021-01-15] MEDS ORDERED: LACTATED RINGERS 1,000 ML IV ONE (08:15)
[2021-01-15] MEDS ORDERED: LACTATED RINGERS 1,000 ML IV STA (08:17)
[2021-01-15] MEDS ORDERED: HURRICAINE EXT TUBE (BENZOCAINE) XX PRN (08:30)
--- NOTE | 2021-01-15 08:44 | Progress Note-Pre Operative ---
Pre-Operative Progress Note H&P Reviewed The H&P was reviewed, patient examined and no changes noted. Time Seen by Provider: 08:42 Date H&P Reviewed: Jan 15, 2021 Time H&P Reviewed: 08:43 Pre-Operative Diagnosis: Diarrhea, Gastritis, Abd pain KEIVN FAIR DO Jan 15, 2021 08:44
[2021-01-15 08:47] VITALS: BP 119/80
[2021-01-15] MEDS ORDERED: PROPOFOL INJECTION 50 ML IV ONE (09:15)
[2021-01-15] MEDS ORDERED: MIDAZOLAM 2 MG/2 ML (VERSED) VIAL ONE (09:15)
[2021-01-15 10:05] VITALS: BP 89/51
[2021-01-15 10:15] VITALS: BP 107/61
--- NOTE | 2021-01-15 10:16 | Progress Note-Post Operative ---
Post-Operative Progess Note Surgeon (s)/Boom Conveyor Operator (s) Surgeon KEVIN FAIR DO Boom Conveyor Operator: NETO Sal Pre-Operative Diagnosis Diarrhea, Gastritis, Abd pain Post-Operative Diagnosis Gastritis Esophagitis Hiatal Hernia Int Hemorrhoids Procedure & Operative Findings Date of Procedure 01/15/21 Procedure Performed/Findings EGD with bx Colonscopy Anesthesia Type IV sedation by PRESS OPERATOR PRINTING Estimated Blood Loss Estimated blood loss (mL): scant Specimens/Packing Specimens Removed antral bx body of stomach bx GE jxn bx KEVNI FAIR DO Jan 15, 2021 10:16
--- NOTE | 2021-01-15 10:16 | Endoscopy Discharge Instruct ---
Endo Procedure/Findings Findings 1.: Gastritis 2.: Hiatal Hernia 3.: Internal Hemorrhoids Discharge Instructions - Activity: You might feel a little sleepy until tomorrow. This is due to the medicine you received to relax you. Until tomorrow, you should: NOT drive a car, operate machinery or power tools. NOT drink any alcoholic beverages. NOT make any important decisions or sign importortant papers. Do not return to work until tomorrow, unless otherwise instructed. Resume previous activities tomorrow. Diet: Start by taking liquids. If you tolerate liquids, advance to solid food. 1.: EGD in 1 year Notify Physician - If you experience excessive bleeding, unusual abdominal pain, fever, or chest pain, contact your doctor immediately. KEVIN FAIR DO Jan 15, 2021 10:16
[2021-01-15 10:18] VITALS: BP 104/59
[2021-01-15 10:20] VITALS: BP 104/59
[2021-01-15 10:40] VITALS: BP 104/59
--- NOTE | 2021-01-15 13:13 | Anesthesia-General Post-Op ---
MAC Patient Condition Mental Status/LOC: Same as Preop Cardiovascular: Satisfactory Nausea/Vomiting: Absent Respiratory: Satisfactory Pain: Controlled Complications: Absent Post Op Complications Complications None Follow Up Care/Instructions Patient Instructions None needed. Anesthesiology Discharge Order Discharge Order Patient is doing well, no complaints, stable vital signs, no apparent adverse anesthesia problems. No complications reported per nursing. MIRLANDE KIRK CRNA Jan 15, 2021 13:13
--- NOTE | 2021-01-15 23:15 | OPERATIVE REPORT ---
DATE OF SERVICE: PREOPERATIVE DIAGNOSES: Diarrhea, gastritis, abdominal pain. POSTOPERATIVE DIAGNOSES: Esophagitis, gastritis, hiatal hernia and internal hemorrhoids. PROCEDURES: 1. EGD with biopsy. 2. Colonoscopy. SURGEON: Toan Nicholas DO KILN MAINTENANCE: Alix Vazquez MS4. ANESTHESIA: IV sedation by the GREEN HIDE INSPECTOR. SPECIMEN: Biopsy of the antrum, biopsy of body of stomach, biopsy from the GE junction. BLOOD LOSS: Scant. FLUIDS: Per anesthesia. POSTOPERATIVE CONDITION: Stable. INDICATION FOR PROCEDURE: The patient is a 25-year-old female who has been having diarrhea, gastritis and continued abdominal pain, so far workup has been negative. FINDINGS: The patient had some mild gastritis, esophagitis and a small hiatal hernia. In the colon, she has had some internal hemorrhoids. No colitis seen. PROCEDURE NOTE: After informed consent was obtained, the patient was brought to the endoscopy suite, placed in bed in left lateral decubitus position. She was administered IV sedation by the GREEN HIDE INSPECTOR who then monitored her vitals the entire time, heart rate, blood pressure and pulse ox and the scope was inserted down the mouth through the esophagus into the stomach. On the way down through the esophagus noted creeping up of the Z line, looked like some acid reflux, took a picture of this, pushed through the stomach into the duodenum. Duodenum looked fine. Pulled back, did a biopsy of the antrum. Retroflexed the scope, saw hiatal hernia was about this under a centimeter, did a biopsy of body of stomach and then pulled the scope into the GE junction, again took a picture of the Z-line and took two biopsies of the GE junction. At this point, then pushed the scope into the stomach, suctioned all the air out and then pulled the scope up the esophagus and out the mouth. Switched camera, switched gloves, went down below to start the colonoscopy, pushed all the way into about 140 cm to the cecum, noted some lymphocytic tissue in the cecum near the appendix, this is normal. At this point, I then slowly withdrew the scope insufflating to look circumferentially at the sargent looking the cecum, up the ascending colon to the hepatic flexure, down the transverse colon, splenic flexure, into the descending colon down into the sigmoid and finally into the rectum, retroflexed in rectal vault, saw some very minimal internal hemorrhoids. I did not see any colitis. No ulcers. No other obvious pathology in the colon. Scope was removed. The patient tolerated the procedure, and she was recovered in the endoscopy suite. Job ID: [id number] DocumentID: [id number] Dictated Date: 01/15/2021 22:24:33 Shipyard Laborer Date: 01/15/2021 23:14:11 Dictated By: TOAN NICHOLAS DO
== END 2021-01-15 11:55 | disposition home or self-care (01) ==
LOC: ENDO 07:57
PROVIDERS: ATTEND Surgery
DX: K29.50 Unspecified chronic gastritis without bleeding (principal); K21.00 Gastro-esophageal reflux disease with esophagitis, without bleeding; K44.9 Diaphragmatic hernia without obstruction or gangrene; K64.8 Other hemorrhoids; J45.909 Unspecified asthma, uncomplicated; F41.9 Anxiety disorder, unspecified; Z79.899 Other long term (current) drug therapy; Z79.51 Long term (current) use of inhaled steroids; Z88.5 Allergy status to narcotic agent; Z80.1 Family history of malignant neoplasm of trachea, bronchus and lung
CPT/HCPCS: 84703